=== PATIENT | male | born 1950 | race Two or more races ===

== ENCOUNTER 2019-04-04 13:00 | Outpatient (CLI) | payer MEDICARE | END 2019-04-04 23:59 | disposition home health service (06) | LOC: WOU 13:00 | PROVIDERS: ATTEND Podiatrist Foot & Ankle Surgery | DX: E11.621 Type 2 diabetes mellitus with foot ulcer (principal); L97.412 Non-pressure chronic ulcer of right heel and midfoot with fat layer exposed; Z79.4 Long term (current) use of insulin; Z89.512 Acquired absence of left leg below knee; E11.51 Type 2 diabetes mellitus with diabetic peripheral angiopathy without gangrene; L03.115 Cellulitis of right lower limb; E11.42 Type 2 diabetes mellitus with diabetic polyneuropathy; G30.9 Alzheimer's disease, unspecified; F02.80 Dementia in other diseases classified elsewhere, unspecified severity, without behavioral disturbance, psychotic disturbance, mood disturbance, and anxiety; H54.8 Legal blindness, as defined in USA; E11.22 Type 2 diabetes mellitus with diabetic chronic kidney disease; N18.9 Chronic kidney disease, unspecified; B35.1 Tinea unguium | CPT/HCPCS: 11042; 87070; 87075; 87077; 87186 ×2; A6210 ==

== ENCOUNTER 2019-04-11 13:00 | Outpatient (CLI) | payer MEDICARE | END 2019-04-11 23:59 | disposition home health service (06) | LOC: WOU 13:00 | PROVIDERS: ATTEND Podiatrist Foot & Ankle Surgery | DX: E11.621 Type 2 diabetes mellitus with foot ulcer (principal); L97.413 Non-pressure chronic ulcer of right heel and midfoot with necrosis of muscle; E11.42 Type 2 diabetes mellitus with diabetic polyneuropathy; E11.51 Type 2 diabetes mellitus with diabetic peripheral angiopathy without gangrene; L03.115 Cellulitis of right lower limb; Z89.512 Acquired absence of left leg below knee; Z79.4 Long term (current) use of insulin; Z99.3 Dependence on wheelchair; R60.0 Localized edema | CPT/HCPCS: 11043; A6210 ==

== ENCOUNTER 2019-04-18 13:30 | Outpatient (CLI) | payer MEDICARE | END 2019-04-18 23:59 | disposition home health service (06) | LOC: WOU 13:30 | PROVIDERS: ATTEND Podiatrist Foot & Ankle Surgery | DX: E11.621 Type 2 diabetes mellitus with foot ulcer (principal); L97.413 Non-pressure chronic ulcer of right heel and midfoot with necrosis of muscle; E11.51 Type 2 diabetes mellitus with diabetic peripheral angiopathy without gangrene; Z89.512 Acquired absence of left leg below knee; Z79.4 Long term (current) use of insulin; Z79.899 Other long term (current) drug therapy; R42 Dizziness and giddiness; R03.1 Nonspecific low blood-pressure reading | CPT/HCPCS: 11043; 82962; 87070; 87075; 87077; 87186; A6210; G0463 ==

== ENCOUNTER 2019-04-25 12:50 | Outpatient (CLI) | payer MEDICARE, OTHER | END 2019-04-25 23:59 | disposition home health service (06) | LOC: WOU 12:50 | PROVIDERS: ATTEND Podiatrist Foot & Ankle Surgery | DX: E11.621 Type 2 diabetes mellitus with foot ulcer (principal); L97.413 Non-pressure chronic ulcer of right heel and midfoot with necrosis of muscle; L03.115 Cellulitis of right lower limb; R60.0 Localized edema; Z89.512 Acquired absence of left leg below knee; E11.51 Type 2 diabetes mellitus with diabetic peripheral angiopathy without gangrene; E11.42 Type 2 diabetes mellitus with diabetic polyneuropathy; Z79.4 Long term (current) use of insulin; Z79.899 Other long term (current) drug therapy | CPT/HCPCS: 11043; A6210 ==

== ENCOUNTER 2019-06-15 10:10 | Outpatient (CLI) | payer MEDICARE, OTHER ==
[2019-11-28] MEDS ORDERED: PANT40TA49 PO (16:40)
[2019-12-19] MEDS ORDERED: NUT.237L45 PO (12:27)
== END 2019-06-15 23:59 ==
LOC: WOU 10:10
PROVIDERS: ATTEND Podiatrist Foot & Ankle Surgery
DX: E11.621 Type 2 diabetes mellitus with foot ulcer (principal); L97.413 Non-pressure chronic ulcer of right heel and midfoot with necrosis of muscle; Z79.4 Long term (current) use of insulin; Z79.899 Other long term (current) drug therapy; Z89.512 Acquired absence of left leg below knee; Z99.3 Dependence on wheelchair
CPT/HCPCS: 11043

== ENCOUNTER 2019-06-29 10:15 | Outpatient (CLI) | payer MEDICARE, OTHER | END 2019-06-29 23:59 | LOC: WOU 10:15 | PROVIDERS: ATTEND Podiatrist Foot & Ankle Surgery | DX: E11.621 Type 2 diabetes mellitus with foot ulcer (principal); L97.413 Non-pressure chronic ulcer of right heel and midfoot with necrosis of muscle; E11.42 Type 2 diabetes mellitus with diabetic polyneuropathy; E11.51 Type 2 diabetes mellitus with diabetic peripheral angiopathy without gangrene; Z79.4 Long term (current) use of insulin; Z79.899 Other long term (current) drug therapy; Z89.512 Acquired absence of left leg below knee | CPT/HCPCS: 11043 ==

== ENCOUNTER 2019-10-05 09:45 | Outpatient (CLI) | payer MEDICARE, OTHER ==
[2019-10-05] MEDS ORDERED: PIOG30TA10 PO (11:32)
[2019-10-05] MEDS ORDERED: INSU100V7 SQ (11:32)
[2019-10-05] MEDS ORDERED: GABA-532 PO (11:32)
[2019-10-05] MEDS ORDERED: CALC355O18 PO (11:32)
[2019-10-05] MEDS ORDERED: PRAM0.253 PO (11:32)
[2019-10-05] MEDS ORDERED: METO25TA6 PO (11:32)
[2019-10-05] MEDS ORDERED: RIVA10TA PO (11:32)
[2019-10-05] MEDS ORDERED: MIRT15TA7 PO (11:32)
[2019-10-05] MEDS ORDERED: ZINC220T4 PO (11:32)
[2019-10-05] MEDS ORDERED: ASCO500T10 PO (11:32)
[2019-10-05] MEDS ORDERED: FAMO40TA7 PO (11:32)
[2019-10-05] MEDS ORDERED: CARB-93 PO (11:32)
[2019-10-05] MEDS ORDERED: ACET-868 PO (11:32)
[2019-10-05] MEDS ORDERED: ISOS30TA6 PO (11:32)
[2019-10-05] MEDS ORDERED: MAGN400T8 PO (11:32)
[2019-10-05] MEDS ORDERED: DONE10TA44 PO (11:32)
[2019-10-05] MEDS ORDERED: MEMA10TA PO (11:32)
[2019-10-05] MEDS ORDERED: ATOR40TA PO (11:32)
[2019-10-05] MEDS ORDERED: LOSA100T31 PO (11:32)
[2019-10-05] MEDS ORDERED: LEVO100T9 PO (11:32)
[2019-10-05] MEDS ORDERED: ARGI1POW13 PO (11:33)
[2019-11-28] MEDS ORDERED: PANT40TA49 PO (16:40)
[2019-12-19] MEDS ORDERED: NUT.237L45 PO (12:27)
== END 2019-10-05 23:59 ==
LOC: WOU 09:45
PROVIDERS: ATTEND Podiatrist Foot & Ankle Surgery
DX: E11.621 Type 2 diabetes mellitus with foot ulcer (principal); L97.416 Non-pressure chronic ulcer of right heel and midfoot with bone involvement without evidence of necrosis; L03.115 Cellulitis of right lower limb; E11.42 Type 2 diabetes mellitus with diabetic polyneuropathy; E11.51 Type 2 diabetes mellitus with diabetic peripheral angiopathy without gangrene; Z79.4 Long term (current) use of insulin; Z89.512 Acquired absence of left leg below knee; Z99.3 Dependence on wheelchair; Z79.899 Other long term (current) drug therapy
CPT/HCPCS: G0463

== ENCOUNTER 2019-10-05 10:54 | Inpatient (IN) | payer MEDICARE, OTHER ==
[~2019-10-05] VITALS: Ht 157.5 cm; Wt 81.6 kg
[2019-10-05] MEDS ORDERED: RIVA10TA PO (11:32)
[2019-10-05] MEDS ORDERED: DONE10TA44 PO (11:32)
[2019-10-05] MEDS ORDERED: MIRT15TA7 PO (11:32)
[2019-10-05] MEDS ORDERED: METO25TA6 PO (11:32)
[2019-10-05] MEDS ORDERED: PRAM0.253 PO (11:32)
[2019-10-05] MEDS ORDERED: CARB-93 PO (11:32)
[2019-10-05] MEDS ORDERED: ZINC220T4 PO (11:32)
[2019-10-05] MEDS ORDERED: GABA-532 PO (11:32)
[2019-10-05] MEDS ORDERED: ASCO500T10 PO (11:32)
[2019-10-05] MEDS ORDERED: CALC355O18 PO (11:32)
[2019-10-05] MEDS ORDERED: ACET-868 PO (11:32)
[2019-10-05] MEDS ORDERED: INSU100V7 SQ (11:32)
[2019-10-05] MEDS ORDERED: ISOS30TA6 PO (11:32)
[2019-10-05] MEDS ORDERED: LOSA100T31 PO (11:32)
[2019-10-05] MEDS ORDERED: MAGN400T8 PO (11:32)
[2019-10-05] MEDS ORDERED: FAMO40TA7 PO (11:32)
[2019-10-05] MEDS ORDERED: ATOR40TA PO (11:32)
[2019-10-05] MEDS ORDERED: PIOG30TA10 PO (11:32)
[2019-10-05] MEDS ORDERED: MEMA10TA PO (11:32)
[2019-10-05] MEDS ORDERED: LEVO100T9 PO (11:32)
[2019-10-05] MEDS ORDERED: ARGI1POW13 PO (11:33)
[2019-10-05 12:00] LABS: BASOPHILS # (AUTO) 0.1 /CMM (0.0-0.2); BASOPHILS % (AUTO) 0.8 % (0.0-2.0); EOSINOPHILS % (AUTO) 6.5 % (0.0-6.0); HEMATOCRIT 30 % (39-51); HEMOGLOBIN 9.6 g/dL (13.5-17.5); LYMPHOCYTES # (AUTO) 1.9 /CMM (0.8-4.8); LYMPHOCYTES % (AUTO) 20.5 % (20.0-44.0); MEAN CORPUSCULAR HGB CONC 32 g/dl (31.0-36.0); MEAN CORPUSCULAR VOLUME 78 fL (80-96); MONOCYTES # (AUTO) 0.7 /CMM (0.1-1.30); MONOCYTES % (AUTO) 7.1 % (2.0-12.0); NEUTROPHILS # (AUTO) 6.1 /CMM (1.8-8.9); NEUTROPHILS % (AUTO) 65.1 % (43.0-81.0); PLATELET COUNT (AUTO) 453 /CMM (150-450); RED BLOOD CELL COUNT(AUTO) 3.89 MIL/uL (4.5-6.0); WHITE BLOOD COUNT (AUTO) 9.3 K/uL (4.3-11.0)
[2019-10-05] MEDS ORDERED: VANCOMYCIN 1 GM in IV D5W 250 ML IV ONE (12:00)
[2019-10-05 12:07] LABS: CALCIUM, SERUM 8.6 mg/dL (8.5-10.1); CARBON DIOXIDE 29 mmol/L (21-32); CHLORIDE 95 mmol/L (98-107); CREATININE 1.3 mg/dL (0.6-1.3); GLUCOSE 193 mg/dL (74-106); POTASSIUM 3.8 mmol/L (3.5-5.1); SODIUM SERUM 127 mmol/L (136-145); UREA NITROGEN, BLOOD 21 mg/dL (7-18)
[2019-10-05 12:14] LABS: ALANINE AMINOTRANSFERASE 14 U/L (12-78); ALBUMIN 2.2 g/dL (3.4-5.0); ALKALINE PHOSPHATASE 97 U/L (46-116); ASPARTATE AMINOTRANSFERASE 16 U/L (15-37); BILIRUBIN,DIRECT 0.1 mg/dL (0.0-0.2); BILIRUBIN,TOTAL 0.2 mg/dL (0.2-1.0); TOTAL PROTEIN, SERUM 8.4 g/dL (6.4-8.2)
--- NOTE | 2019-10-05 12:21 | NUR ---
Sent by the wound clinic (Dr. Silva) for right foot cellulitis, poss. OM. PT NON VERBAL, EYES OPEN. VSS. RR EVEN & UNLABORED. NO ACUTE DISTRESS NOTED @ THIS TIME. PT SEEN & EVAL'D BY DR. FELIPE. WILL CONT TO MONITOR.
--- NOTE | 2019-10-05 12:22 | NUR ---
CALLED PHARM TO PREPARE VANCOMYCIN
--- NOTE | 2019-10-05 13:32 | NUR ---
PAGED [facility].
[2019-10-05 13:33] LABS: APPEARANCE,URINE Clear (CLEAR); BILIRUBIN,URINE Negative (NEGATIVE); BLOOD, URINE Negative Ery/uL (NEGATIVE); COLOR,URINE Yellow (YELLOW); KETONES,URINE Negative (NEGATIVE); LEUKOCYTE ESTERASE ,URINE Negative (NEGATIVE); NITRITE, URINE Negative (NEGATIVE); PH,URINE 5.5 (5.0-8.0); PROTEIN,URINE 100 mg/dl (NEGATIVE); UGLUCOSE Negative (NEGATIVE); UROBILINOGEN,URINE 0.2 EU/dL (0.2)
--- NOTE | 2019-10-05 14:00 | NUR ---
CALLED NURSING SUP FOR M/S BED.
--- NOTE | 2019-10-05 14:14 | NUR ---
NURSING SUP GAVE M/S BED 314-1. IMMACHELLEULATE IS THE NURSE.
--- NOTE | 2019-10-05 14:21 | NUR ---
report given to salvador SHAH for jamee
--- NOTE | 2019-10-05 14:40 | NUR ---
MS RN ADMITTING NOTES RECEIVED REPORT FROM PABLO FRAUSTO. PT TRANSPORTED TO UNIT AT THIS TIME VIA GURNEY BY EMT. AOX3, CAMEROONIAN/ENGLSIH SPEAKING. PT ABLE TO MAKE NEEDS KNOWN. VITAL SIGNS STABLE, ACTIVE BOWEL SOUNDS, LUNGS CLEAR TO AUSCULTATION, CAPILLARY REFILL < 3 SECONDS, PRESENT PULSES. NO SOB NOTED, NO S/S OF ANY ACUTE DISTRESS NOTED AT THIS TIME. RESPIRATIONS EVEN AND UNLABORED WITH EQUAL RISE AND FALL IN CHEST. NO C/O PAIN AT THIS TIME. IV ACCESS IN L-HAND G#22, INTACT AND PATENT. LEFT BELOW THE KNEE AMPUTATION, RIGHT HEEL WOUND, SACRAL REDNESS, LEFT THIGH SCRATCH BERNSTEIN, RIGHT LEG/FOOT SCARS, WHEEL CHAIR AT BEDSIDE. PICTURES TAKEN, DOCUMENTED AND FILED IN CHART. ALL BELONGINGS ACCOUNTED FOR AND FILED IN CHART. ASPIRATION AND SAFETY PRECAUTIONS IN PLACE. BED IN LOWEST LOCKED POSITION, SIDE RAILS UP X2, HOB ELEVATED TO SEMI FOWLERS POSITION, CALL LIGHT WITHIN REACH. WILL CONTINUE TO MONITOR
--- NOTE | 2019-10-05 14:40 | NUR ---
MS RN ADD
[2019-10-05] MEDS ORDERED: ONDANSETRON HCL/PF 4 MG/2 ML VIAL IVP PRN (15:00)
[2019-10-05] MEDS ORDERED: DEXTROSE 50%-WATER 50 ML DISP.SYRIN IV PRN (15:00)
[2019-10-05] MEDS ORDERED: ENOXAPARIN SODIUM 40 MG/0.4 ML DISP.SYRIN SQ SCH (15:00)
[2019-10-05] MEDS ORDERED: Z GUARD REMEDY 2 OZ OINT TP PRN (15:00)
[2019-10-05] MEDS ORDERED: ACETAMINOPHEN 325 MG TABLET PO PRN (15:00)
[2019-10-05] MEDS ORDERED: ZOLPIDEM TARTRATE 5 MG TABLET PO PRN (15:00)
--- NOTE | 2019-10-05 15:15 | NUR ---
wheeled patient via gurney accompanied by EMT in no distress. RN at bedside to assume care.
[2019-10-05] MEDS: MEMANTINE HCL 5 MG TABLET PO SCH (16:33)
[2019-10-05] MEDS: GABAPENTIN 100 MG CAPSULE PO SCH (16:34)
[2019-10-05] MEDS: CARBIDOPA/LEVODOPA 25/100 MG 1 UDTAB PO SCH ×2 (16:34→21:46)
[2019-10-05] MEDS: MAGNESIUM OXIDE 400 MG TABLET PO SCH (16:34)
[2019-10-05] MEDS: ASCORBIC ACID 500 MG TABLET PO SCH (16:34)
[2019-10-05] MEDS: BLOOD SUGAR DIAGNOSTIC 1 EACH STRIP IN SCH ×2 (17:37→21:51)
[2019-10-05] MEDS: INSULIN REGULAR, HUMAN 100 UNIT/ML 3 ML VIAL SQ PRN ×2 (17:42→21:54)
[2019-10-05] MEDS: PIPERACILLIN /TAZOBACTAM 4.5 G in IV D5W 50 ML IV SCH ×2 (17:45→23:45)
[2019-10-05] MEDS ORDERED: FEE PK DOSING 1 MIN EA MC ONE (18:54)
--- NOTE | 2019-10-05 18:58 | NUR ---
MS RN CLOSING NOTES PT AWAKE IN BED AT THIS TIME. PT REMAINED STABLE THROUGHOUT SHIFT. PT KEPT CLEAN AND DRY. ALL CARE, NEEDS, MEDICATIONS AND WOUND TREATMENT ADMINISTERED ANTICIPATED PER ORDER.PT REPOSITIONED Q2HRS, PRN AND PER PROTOCOL. ASPIRATION AND SAFETY PRECAUTIONS IN PLACE AND MAINTAINED AT ALL TIMES. BED IN LOWEST LOCKED POSITION, SIDE RAILS UP X2, HOB ELEVATED TO SEMI FOWLERS POSITION, CALL LIGHT WITHIN REACH. WILL ENDORSE TO DESK OFFICER NURSE FOR MAR
--- NOTE | 2019-10-05 19:30 | NUR ---
MS RN RECEIVE PT IN BED AWAKE WATCHING TV A/O X 1 STABLE, NO S/S OF DISTRESS, SAFETY MEASURES AT ALL TIMES. WILL CONT TO MONITOR PT
[2019-10-05 20:00] VITALS: BP 117/63
[2019-10-05] MEDS: ATORVASTATIN 40 MG TABLET PO SCH (21:46)
[2019-10-05] MEDS: DONEPEZIL 5 MG TABLET PO SCH (21:46)
[2019-10-05] MEDS ORDERED: HYDROCODONE/APAP 5/325MG 1 EACH TABLET ONE (21:49)
[2019-10-05] MEDS: METOPROLOL TARTRATE 25 MG TABLET PO SCH (21:50)
[2019-10-05] MEDS: HYDROCODONE/APAP 5/325MG 1 EACH TABLET PO PRN (21:51)
[2019-10-05] MEDS: RIVAROXABAN 10 MG TABLET PO SCH (21:52)
[2019-10-05] MEDS: INSULIN GLARGINE, 100 UNIT/ML CARTRIDGE SQ SCH (21:53)
[2019-10-05] MEDS ORDERED: MIRTAZAPINE 15 MG TABLET PO PRN (22:00)
[2019-10-06] MEDS: VANCOMYCIN 0.75 GM in IV D5W 250 ML IV SCH ×2 (01:58→14:00)
[2019-10-06] MEDS: PIPERACILLIN /TAZOBACTAM 4.5 G in IV D5W 50 ML IV SCH ×4 (05:14→23:31)
--- NOTE | 2019-10-06 05:51 | NUR ---
MS RN ASLEEP AND EASILY AWAKEN, AM CARE RENDERED, GOOD SKIN CARE, NO C/O OF PAIN, NO S/S OF DISTRESS, ALL NEEDS ATTENDED AND ANTICIPATED, MONITORED ACCORDINGLY, KEPT CLEAN, COMFORTABLE. REPOSITION EVERY 2 HOURS, SAFETY MEASURES AT ALL TIMES. ENDORSE NEXT SHIFT POC.
[2019-10-06 06:23] LABS: BASOPHILS % (AUTO) 0.5 % (0.0-2.0); HEMATOCRIT 28 % (39-51); LYMPHOCYTES # (AUTO) 1.8 /CMM (0.8-4.8); LYMPHOCYTES % (AUTO) 25.4 % (20.0-44.0); MEAN CORPUSCULAR HGB CONC 32 g/dl (31.0-36.0); MEAN CORPUSCULAR VOLUME 77 fL (80-96); MONOCYTES # (AUTO) 0.5 /CMM (0.1-1.30); NEUTROPHILS # (AUTO) 4.1 /CMM (1.8-8.9); NEUTROPHILS % (AUTO) 58.1 % (43.0-81.0); PLATELET COUNT (AUTO) 403 /CMM (150-450); RED BLOOD CELL COUNT(AUTO) 3.65 MIL/uL (4.5-6.0); WHITE BLOOD COUNT (AUTO) 7.1 K/uL (4.3-11.0)
[2019-10-06] MEDS: BLOOD SUGAR DIAGNOSTIC 1 EACH STRIP IN SCH ×4 (06:25→22:37)
[2019-10-06] MEDS: INSULIN REGULAR, HUMAN 100 UNIT/ML 3 ML VIAL SQ PRN ×4 (06:26→22:40)
[2019-10-06 06:54] LABS: CALCIUM, SERUM 8.7 mg/dL (8.5-10.1); CREATININE 1.3 mg/dL (0.6-1.3); MAGNESIUM 2.2 mg/dL (1.8-2.4); PHOSPHORUS 3.5 mg/dL (2.5-4.9); POTASSIUM 3.8 mmol/L (3.5-5.1)
--- NOTE | 2019-10-06 07:08 | NUR ---
MS RN OPENING NOTES RECEIVED PT AWAKE IN BED AT THIS TIME. AOX3, MOLDOVAN/GUINEAN SPEAKING. PT ABLE TO MAKE NEEDS KNOWN. NO SOB NOTED, NO S/S OF ANY ACUTE DISTRESS NOTED AT THIS TIME. RESPIRATIONS EVEN AND UNLABORED WITH EQUAL RISE AND FALL IN CHEST. NO C/O PAIN AT THIS TIME. IV ACCESS IN L-HAND G#22, INTACT AND PATENT. LEFT BELOW THE KNEE AMPUTATION, WHEEL CHAIR AT BEDSIDE. ASPIRATION AND SAFETY PRECAUTIONS IN PLACE. BED IN LOWEST LOCKED POSITION, SIDE RAILS UP X2, HOB ELEVATED TO SEMI FOWLERS POSITION, CALL LIGHT WITHIN REACH. WILL CONTINUE TO MONITOR
[2019-10-06 07:24] LABS: THYROID STIMULATING HORMONE 4.415 uIU/mL (0.358-3.74)
[2019-10-06 08:00] VITALS: BP 139/74
[2019-10-06] MEDS: PANTOPRAZOLE 40 MG TABLET.DR PO SCH (08:29)
[2019-10-06] MEDS: ISOSORBIDE MONONITRATE (30MG) 30 MG TAB.SR.24H PO SCH (09:31)
[2019-10-06] MEDS: ZINC SULFATE 220 MG CAPSULE PO SCH (09:32)
[2019-10-06] MEDS: GABAPENTIN 100 MG CAPSULE PO SCH ×3 (09:32→16:28)
[2019-10-06] MEDS: PIOGLITAZONE HCL 15 MG TABLET PO SCH (09:32)
[2019-10-06] MEDS: LOSARTAN POTASSIUM 50 MG TABLET PO SCH (09:33)
[2019-10-06] MEDS: CARBIDOPA/LEVODOPA 25/100 MG 1 UDTAB PO SCH ×4 (09:33→22:14)
[2019-10-06] MEDS: MEMANTINE HCL 5 MG TABLET PO SCH ×2 (09:33→16:28)
[2019-10-06] MEDS: METOPROLOL TARTRATE 25 MG TABLET PO SCH ×2 (09:33→22:19)
[2019-10-06] MEDS: PRAMIPEXOLE DI-HCL 0.25 MG TABLET PO SCH (09:33)
[2019-10-06] MEDS: LEVOTHYROXINE SODIUM 100 MCG TABLET PO SCH (09:33)
[2019-10-06] MEDS: ASCORBIC ACID 500 MG TABLET PO SCH ×2 (09:34→16:28)
[2019-10-06] MEDS: MAGNESIUM OXIDE 400 MG TABLET PO SCH ×2 (09:50→16:28)
--- NOTE | 2019-10-06 15:30 | NUR ---
PT'S VANCO TROUGH LEVEL IS 28. ISELA, VEHICLE TECHNICIAN WAS MADE AWARE. HOLD VANCOMYCIN HELD PER ISELA ANGEL
[2019-10-06 16:00] VITALS: BP 83/42
--- NOTE | 2019-10-06 18:00 | NUR ---
PT CONSULTED BY DOCTOR CID, WOUND CARE ORDERS RECEIVED AND CARRIED OUT. WILL CONTINUE TO MONITOR
--- NOTE | 2019-10-06 19:03 | NUR ---
MS RN CLOSING NOTES PT AWAKE IN BED AT THIS TIME. PT REMAINED STABLE THROUGHOUT SHIFT. PT KEPT CLEAN AND DRY. ALL CARE, NEEDS, MEDICATIONS AND WOUND TREATMENT ADMINISTERED ANTICIPATED PER ORDER.PT REPOSITIONED Q2HRS, PRN AND PER PROTOCOL. ASPIRATION AND SAFETY PRECAUTIONS IN PLACE AND MAINTAINED AT ALL TIMES. BED IN LOWEST LOCKED POSITION, SIDE RAILS UP X2, HOB ELEVATED TO SEMI FOWLERS POSITION, CALL LIGHT WITHIN REACH. WILL ENDORSE TO ORACLE MANAGER NURSE FOR MAR
--- NOTE | 2019-10-06 19:30 | NUR ---
MS RN RECEIVE PT IN BED TV A/O X 1-2 STABLE, NO S/S OF DISTRESS, WOUND CARE ONGOING. SAFETY MEASURES AT ALL TIMES. WILL CONT TO MONITOR PT Addendum: 10/06/19 at 1950 by NAYA ROA RN WATCHING TV
[2019-10-06 20:30] VITALS: BP 96/57
[2019-10-06 21:30] VITALS: BP 86/56
--- NOTE | 2019-10-06 21:30 | NUR ---
NOTED PT LOW BLOOD PRESSURE BP 86/56 CT 61 T 97.8 R 19 O2 SAT 98% R.A ASSESS PT, PT CAN ABLE VERBALIZE NEEDS PER PT "IM OK". WILL RELAY TO Neeta PT STABLE
[2019-10-06] MEDS ORDERED: IV NS 0.9% 500 ML IV ONE ×3 (22:00→23:30)
--- NOTE | 2019-10-06 22:00 | NUR ---
SPOKE TO RACHEL TRINIDAD HOSPITALIST RELAYED RECENT BLOOD PRESSURE TEL ORDER RECEIVE PER M.D TO GIVE 500 ML NS IVF BOLUS TO BE INFUSED IN 30 MINUTES. RE CHECK BP POST BOLUS IF STILL LOW BLOOD PRESSURE GIVE ANOTHER BOLUS OF IVF 500 ML NS, CONTINUE GIVE BOLUS UNTIL BLOOD PRESSURE NORMALIZE. TOTAL BOLUS MAX TO BE GIVEN 2000 LITERS READ BACK AND VERIFIED ORDERS NOTED AND CARRIED OUT
[2019-10-06] MEDS: DONEPEZIL 5 MG TABLET PO SCH (22:14)
[2019-10-06] MEDS: ATORVASTATIN 40 MG TABLET PO SCH (22:14)
[2019-10-06] MEDS: RIVAROXABAN 10 MG TABLET PO SCH (22:18)
--- NOTE | 2019-10-06 22:35 | NUR ---
PT HAD PM SNACKS 1 TUNA SANDWICH AND 2 APPLE JUICE
[2019-10-06] MEDS: INSULIN GLARGINE, 100 UNIT/ML CARTRIDGE SQ SCH (22:38)
--- NOTE | 2019-10-06 22:40 | NUR ---
ZEESHAN HOSPITALIST Addendum: 10/07/19 at 0209 by NAYA ROA RN Zeeshan franco around 2140 10/06/2019
[2019-10-06 22:45] VITALS: BP 88/58
--- NOTE | 2019-10-06 22:45 | NUR ---
MS RN REASSESS PT POST BOLUS BP: 88/58 R 19 P 73 T 98.1 02 SAT 98% R.A WILL GIVE NS IVF 500 ML BOLUS PER ORDER
[2019-10-06 23:27] VITALS: BP 84/50
--- NOTE | 2019-10-06 23:27 | NUR ---
MS RN BLOOD PRESSURE 84/50 P 61 t 98.7 R 19 O2 SAT 100% R.A PT STABLE AT THIS TIME ABLE TO VERBALIZE NEEDS ANOTHER 500 ML BOLUS GIVEN PER RACHEL TRINIDAD ORDERS
[2019-10-07 00:12] VITALS: BP 103/75
--- NOTE | 2019-10-07 00:12 | NUR ---
MS SHAH RE ASSESS PT POST BOLUS BLOOD PRESSURE 103/75 R 19 P 65 T 98.6 02 SAT 98% R.A PT STABLE HAD 1 APPLE JUICE PT APPRECIATIVE TO NURSES, REPOSITION PT. Addendum: 10/07/19 at 0025 by NAYA ROA RN CHARGE NURSE AWARE POST BOLUS VITAL SIGN
[2019-10-07 01:58] VITALS: BP 112/60
--- NOTE | 2019-10-07 02:00 | NUR ---
SPOKE TO FAY SISTER OF THE PT RELAYED RECENT VITAL SIGNS AND DISCUSS PLAN OF CARE. SISTER FAY APPRECIATIVE TO NURSES TRANSFERRED PHONE CALL TO PT.
[2019-10-07] MEDS: PIPERACILLIN /TAZOBACTAM 4.5 G in IV D5W 50 ML IV SCH ×3 (05:41→17:03)
--- NOTE | 2019-10-07 05:55 | NUR ---
MS RN MONITORED PT ACCORDINGLY, NO C/O OF PAIN, NO S/S OF DISTRESS, ALL NEEDS ATTENDED AND ANTICIPATED. PT SATISFIED WITH CARE PROVIDED PT VERBALIZED"GOOD SERVICE" PT A/O X 2-3 PERIOD OF FORGETFULNESS, REPOSITION EVERY 2 HOURS, WOUND CARE ORDERED, OFFLOAD HEELS AT ALL TIMES. KEPT CLEAN, DRY AND COMFORT AT ALL TIMES. SAFETY MEASURES AT ALL TIMES. ENDORSE NEXT SHIFT POC.
[2019-10-07] MEDS: BLOOD SUGAR DIAGNOSTIC 1 EACH STRIP IN SCH ×4 (06:34→21:15)
[2019-10-07] MEDS: INSULIN REGULAR, HUMAN 100 UNIT/ML 3 ML VIAL SQ PRN ×4 (06:35→21:07)
[2019-10-07 06:43] VITALS: BP 100/53
[2019-10-07 06:49] LABS: BASOPHILS % (AUTO) 0.5 % (0.0-2.0); EOSINOPHILS % (AUTO) 8.2 % (0.0-6.0); HEMATOCRIT 25 % (39-51); HEMOGLOBIN 7.9 g/dL (13.5-17.5); LYMPHOCYTES # (AUTO) 1.5 /CMM (0.8-4.8); LYMPHOCYTES % (AUTO) 19.9 % (20.0-44.0); MEAN CORPUSCULAR HGB CONC 32 g/dl (31.0-36.0); MEAN CORPUSCULAR VOLUME 77 fL (80-96); MONOCYTES # (AUTO) 0.6 /CMM (0.1-1.30); MONOCYTES % (AUTO) 7.3 % (2.0-12.0); NEUTROPHILS # (AUTO) 4.9 /CMM (1.8-8.9); NEUTROPHILS % (AUTO) 64.1 % (43.0-81.0); PLATELET COUNT (AUTO) 353 /CMM (150-450); RED BLOOD CELL COUNT(AUTO) 3.21 MIL/uL (4.5-6.0); WHITE BLOOD COUNT (AUTO) 7.6 K/uL (4.3-11.0)
[2019-10-07 06:54] LABS: CALCIUM, SERUM 7.7 mg/dL (8.5-10.1); CREATININE 1.4 mg/dL (0.6-1.3); POTASSIUM 3.7 mmol/L (3.5-5.1)
--- NOTE | 2019-10-07 07:30 | NUR ---
RN OPEN NOTES PATIENT IS IN BED RESTING IN BED WITH NO SIGNS OF DISTRESS IN ROOM AIR. IV LEFT HAND #22G INTACT AND PATENT. R LEG ELEVATED ON ONE PILLOW. BED IS IN LOW POSITION AND LOCKED WITH STUDENT EDUCATION SPECIALIST RAILS X 2. CALL LIGHT IS WITHIN REACH. FOR SAFETY WILL CONTINUE TO MONITOR.
[2019-10-07 08:00] VITALS: BP 100/53
[2019-10-07] MEDS: PRAMIPEXOLE DI-HCL 0.25 MG TABLET PO SCH (08:49)
[2019-10-07] MEDS: ZINC SULFATE 220 MG CAPSULE PO SCH (08:49)
[2019-10-07] MEDS: PIOGLITAZONE HCL 15 MG TABLET PO SCH (08:50)
[2019-10-07] MEDS: GABAPENTIN 100 MG CAPSULE PO SCH ×3 (08:50→16:56)
[2019-10-07] MEDS: CARBIDOPA/LEVODOPA 25/100 MG 1 UDTAB PO SCH ×4 (08:50→20:26)
[2019-10-07] MEDS: MAGNESIUM OXIDE 400 MG TABLET PO SCH ×2 (08:50→16:55)
[2019-10-07] MEDS: ASCORBIC ACID 500 MG TABLET PO SCH ×2 (08:50→16:55)
[2019-10-07] MEDS: MEMANTINE HCL 5 MG TABLET PO SCH ×2 (08:50→16:55)
[2019-10-07] MEDS: LEVOTHYROXINE SODIUM 100 MCG TABLET PO SCH (08:55)
[2019-10-07] MEDS: PANTOPRAZOLE 40 MG TABLET.DR PO SCH (08:55)
[2019-10-07] MEDS ORDERED: VANCOMYCIN 0.75 GM in IV D5W 250 ML IV SCH ×2 (09:00→13:00)
[2019-10-07] MEDS: LOSARTAN POTASSIUM 50 MG TABLET PO SCH (09:00)
[2019-10-07] MEDS: ISOSORBIDE MONONITRATE (30MG) 30 MG TAB.SR.24H PO SCH (09:00)
[2019-10-07] MEDS: METOPROLOL TARTRATE 25 MG TABLET PO SCH ×2 (09:00→20:31)
--- NOTE | 2019-10-07 09:11 | NUR ---
RN NOTES BP WAS LOW 100/53 HR 75. BP MEDICATIONS WERE HOLD.
[2019-10-07] MEDS: DAKINS QUARTER STRENGTH (0.125%) 480 ML BOTTLE TOP SCH (09:43)
--- NOTE | 2019-10-07 10:30 | NUR ---
RN NOTES R HEEL WOUND DRESSING WAS CHANGED AND CLEANED DIRECTED. NO SIGNS OF BLEEDING ON THE WOUND. WILL CONTINUE TO MONITOR.
--- NOTE | 2019-10-07 11:40 | NUR ---
RN NOTES PATIENT HAD A EPISODE OF LOW BLOOD PRESSURE 998/[address] LANGE AND ORDERED NS 75 MLS/HR. ORDERED WAS NOTED AND CARRIED OUT.
[2019-10-07] MEDS: IV NS 0.9% 1,000 ML IV PRN (12:23)
[2019-10-07 16:00] VITALS: BP 107/63
[2019-10-07] MEDS: MUPIROCIN OINT 2% 22 GM TUBE SCH ×2 (16:55→20:27)
--- NOTE | 2019-10-07 19:15 | NUR ---
RN CLOSED NOTES PATIENT IS IN BED RESTING IN BED WITH NO SIGNS OF DISTRESS IN ROOM AIR. IV LEFT HAND #22G INTACT AND PATENT. R LEG ELEVATED ON ONE PILLOW. SCHEDULED MEDICATIONS WERE GIVEN AND TOLERATED WELL. CONSENT PACKET FOR SURGERY READY, CHECKLIST STARTED AND 2 UNITS OF PRBC ORDERED ON STAND BY FOR TOMORROW ORDERE BY DR CID. NPO AFTER MIDNIGHT. BED IS IN LOW POSITION AND LOCKED WITH MACHINE II TRIMMER RAILS X 2. CALL LIGHT IS WITHIN REACH. FOR SAFETY. WILL ENDORSE TO THE NEXT SHIFT.
--- NOTE | 2019-10-07 19:25 | NUR ---
MS PABLO OPEN NOTES PATIENT IS LAYING IN BED. A/O X1-2. ON RA, NO SOB/ ACUTE RESPIRATORY DISTRESS NOTED. BED IS IN LOWEST LOCKED POSITION WITH SIDE RAILS UP X3, SEMI FOWLERS. CALL LIGHT IS WITHIN REACH. NPO AT MIDNIGHT NOTED FOR PROCEDURE TOMORROW. WILL CONTINUE TO MONITOR.
[2019-10-07 20:20] VITALS: BP 104/59
[2019-10-07] MEDS: DONEPEZIL 5 MG TABLET PO SCH (21:03)
[2019-10-07] MEDS: ATORVASTATIN 40 MG TABLET PO SCH (21:04)
[2019-10-07] MEDS: INSULIN GLARGINE, 100 UNIT/ML CARTRIDGE SQ SCH (21:06)
[2019-10-07] MEDS: RIVAROXABAN 10 MG TABLET PO SCH (21:26)
--- NOTE | 2019-10-07 21:27 | NUR ---
MS RN NOTES XARELTO 10MG SCHEDULED @ 2200 NON- ADMINISTERED DUE TO PATIENT'S PROCEDURE AT 1030AM TOMORROW. PATIENT IS GETTING A R HEEL DEBRIDEMENT. ALSO CONTACTED DR. TRINIDAD, IN WHICH HE STATED TO HOLD THE MEDICATION FOR TONIGHT. WILL CONTINUE TO MONITOR PATIENT.
[2019-10-08] MEDS: PIPERACILLIN /TAZOBACTAM 4.5 G in IV D5W 50 ML IV SCH ×5 (00:14→23:18)
[2019-10-08] MEDS: IV NS 0.9% 1,000 ML IV PRN (05:09)
--- NOTE | 2019-10-08 06:14 | NUR ---
MS RN CLOSE NOTES PATIENT IS LAYING IN BED. A/O X2-3. STABLE ON RA, NO SOB/ ACUTE RESPIRATORY DISTRESS NOTED. IV IN L HAND #22G IS PATENT AND INTACT. ALL DUE ANTIBIOTICS GIVEN. ALL ACCUCHECKS DONE. KEPT NPO SINCE MIDNIGHT. APPEARS COMFORTABLE/ NO COMPLAINTS OF PAIN AT THE MOMENT. BED IS IN LOWEST LOCKED POSITION WITH SIDE RAILS UP X3, SEMI FOWLERS. CALL LIGHT IS WITHIN REACH. WILL ENDORSE TO AM NURSE.
[2019-10-08] MEDS: BLOOD SUGAR DIAGNOSTIC 1 EACH STRIP IN SCH ×4 (06:39→22:04)
[2019-10-08] MEDS: PANTOPRAZOLE 40 MG TABLET.DR PO SCH (07:30)
[2019-10-08] MEDS: LEVOTHYROXINE SODIUM 112 MCG TABLET PO SCH (07:30)
--- NOTE | 2019-10-08 07:53 | NUR ---
MS/RN OPENING NOTES Received patient in bed, A&O x 2, mostly danish speaking. Kept at NPO for wound debridement procedure today @ 1030. Breathing even and non-labored on RA, no SOB noted. No cardiac distress noted. Patient denies any pain at this time. IV access noted on L Hand #22, running NS @ 75ml/hr. No infiltration, infection, or bleeding noted on site. Sensation from all peripheral extremities intact. Fall precautions maintained. Will continue to monitor for any changes of condition. Addendum: 10/08/19 at 0959 by ISELA JERRY RN Abdoulaye Combs noted, skin area clean, dry, intact.
[2019-10-08 08:00] VITALS: BP 110/56
[2019-10-08] MEDS: PIOGLITAZONE HCL 15 MG TABLET PO SCH (08:32)
[2019-10-08] MEDS: LOSARTAN POTASSIUM 50 MG TABLET PO SCH (08:34)
[2019-10-08] MEDS: ISOSORBIDE MONONITRATE (30MG) 30 MG TAB.SR.24H PO SCH (08:36)
[2019-10-08] MEDS: METOPROLOL TARTRATE 25 MG TABLET PO SCH ×2 (08:36→21:38)
[2019-10-08] MEDS: CARBIDOPA/LEVODOPA 25/100 MG 1 UDTAB PO SCH ×4 (08:37→21:37)
[2019-10-08] MEDS: PRAMIPEXOLE DI-HCL 0.25 MG TABLET PO SCH (08:37)
[2019-10-08] MEDS: ZINC SULFATE 220 MG CAPSULE PO SCH (08:37)
[2019-10-08] MEDS: MAGNESIUM OXIDE 400 MG TABLET PO SCH ×2 (08:37→16:50)
[2019-10-08] MEDS: ASCORBIC ACID 500 MG TABLET PO SCH ×2 (08:37→16:50)
[2019-10-08] MEDS: MEMANTINE HCL 5 MG TABLET PO SCH ×2 (08:37→16:49)
[2019-10-08] MEDS: GABAPENTIN 100 MG CAPSULE PO SCH ×3 (08:37→16:50)
[2019-10-08] MEDS: MUPIROCIN OINT 2% 22 GM TUBE SCH ×2 (09:00→22:03)
[2019-10-08] MEDS: DAKINS QUARTER STRENGTH (0.125%) 480 ML BOTTLE TOP SCH (09:00)
--- NOTE | 2019-10-08 09:52 | NUR ---
WOUND CARE CONSULT: PT REFUSED SKIN ASSESSMENT. PT NOTED TO HAVE BELOW KNEE AMPUTATION ON LEFT SIDE AND DRY DRESSING TO RT FOOT, PRESENT ON ADMISSION. ADMISSION PHOTOS SHOW SACRAL SCARRING, PRESENT ON ADMISSION. RECOMMENDATIONS MADE FOR SKIN PROTECTION. DISCUSSED WITH NURSING STAFF. PT FOLLOWED BY DPM FOR LOWER EXTREMITY. WILL SEE PRN. IN AGREEMENT WITH PLAN OF CARE.
--- NOTE | 2019-10-08 10:10 | NUR ---
MS/RN NOTES Rapid covid-19 test taken and sent to lab.
[2019-10-08] MEDS ORDERED: LIDOCAINE HCL/MPF 1% 30 ML VIAL IJ ONE (11:59)
[2019-10-08] MEDS ORDERED: BUPIVACAINE 0.5 % PF 150 MG/30 ML VIAL ONE (11:59)
[2019-10-08 12:28] LABS: BASOPHILS # (AUTO) 0.1 /CMM (0.0-0.2); BASOPHILS % (AUTO) 0.7 % (0.0-2.0); EOSINOPHILS % (AUTO) 10.8 % (0.0-6.0); HEMATOCRIT 26 % (39-51); HEMOGLOBIN 8.5 g/dL (13.5-17.5); LYMPHOCYTES # (AUTO) 1.4 /CMM (0.8-4.8); LYMPHOCYTES % (AUTO) 19.6 % (20.0-44.0); MEAN CORPUSCULAR HGB CONC 32 g/dl (31.0-36.0); MEAN CORPUSCULAR VOLUME 76 fL (80-96); MONOCYTES # (AUTO) 0.5 /CMM (0.1-1.30); MONOCYTES % (AUTO) 7.2 % (2.0-12.0); NEUTROPHILS # (AUTO) 4.3 /CMM (1.8-8.9); NEUTROPHILS % (AUTO) 61.7 % (43.0-81.0); PLATELET COUNT (AUTO) 381 /CMM (150-450); RED BLOOD CELL COUNT(AUTO) 3.46 MIL/uL (4.5-6.0)
--- NOTE | 2019-10-08 12:30 | NUR ---
MS/RN NOTES Patient picked up for procedure. VSS remains stable, no complaints of pain and discomfort noted from patient.
[2019-10-08 12:41] LABS: ALBUMIN 1.8 g/dL (3.4-5.0); BILIRUBIN,TOTAL 0.3 mg/dL (0.2-1.0); CREATININE 1.2 mg/dL (0.6-1.3); PHOSPHORUS 2.3 mg/dL (2.5-4.9); POTASSIUM 3.8 mmol/L (3.5-5.1); TOTAL PROTEIN, SERUM 7.1 g/dL (6.4-8.2)
[2019-10-08] MEDS ORDERED: ANESTHESIA TRAY IN PYXIS 1 EA TRAY MC ONE (12:53)
[2019-10-08] MEDS ORDERED: BACITRACIN 50000 UNITS/VIAL ONE (12:53)
[2019-10-08] MEDS ORDERED: FENTANYL PF 100MCG/2ML AMPUL ONE (12:57)
[2019-10-08] MEDS ORDERED: VANCOMYCIN 1 GM VIAL ONE (13:22)
[2019-10-08] MEDS ORDERED: GENTAMICIN 80 MG/2 ML VIAL ONE (13:22)
--- NOTE | 2019-10-08 15:15 | NUR ---
MS/RN NOTES Received patient from OR. Rendered doctor's written orders. VSS remains stable, patient denies any pain/discomfort at this time. Will continue to monitor for any changes in condition.
[2019-10-08 15:30] VITALS: BP 116/74
[2019-10-08 15:45] VITALS: BP 126/78
[2019-10-08 15:49] LABS: HEMOGLOBIN 9.1 g/dL (13.5-17.5)
[2019-10-08 16:00] VITALS: BP 131/67
[2019-10-08] MEDS ORDERED: K PHOS NEUTRAL 250 MG TABLET PO ONE (17:00)
--- NOTE | 2019-10-08 19:28 | NUR ---
MS/RN CLOSING NOTES Patient resting in bed, A&O x 2. No complaints of pain/discomfort at this time. Breathing even and non-labored on RA, no SOB noted. No cardiac distress noted. IV access noted on R Hand #22, running NS @ 75ml/hr. No infiltration, infection, or bleeding noted on site. IV access noted on the L hand #18. patent, intact, and flushing well. Right heel dressing noted, clean, intact, and dry. Right lower extremity kept elevated and offloaded. Fall precautions maintained. Will endorse to hotel night auditor nurse.
--- NOTE | 2019-10-08 19:30 | NUR ---
MS RN OPENING NOTES RECEIVED PATIENT FROM MORNING SHIFT, ALERT AND ORIENTED X 2-3. AMHARIC SPEAKING VERBALLY RESPONSIVE AND ABLE TO FOLLOW DIRECTIONS. BREATHING REGULAR AND UNLABORED ON ROOM AIR. RIGHT HAND G22 AND LEFT HAND G18 IV LINES INTACT AND PATENT, FLUSHING WELL WITH NO BLEEDING OR S/S OF INFECTION NOTED. DENIES SUICIDAL IDEATION. COMPLAINED OF 7/10 RIGHT HIP PAIN, NON-PHARMACOLOGICAL INTERVENTIONS PROVIDED. S/P RIGHT HEEL WOUND DEBRIDEMENT, DRESSING INTACT, CLEAN AND DRY. BED LOW AND LOCKED ON SEMI FOWLERS POSITION. CALL LIGHT IN REACH. WILL CONTINUE TO MONITOR.
[2019-10-08] MEDS: HYDROCODONE/APAP 5/325MG 1 EACH TABLET PO PRN (19:41)
--- NOTE | 2019-10-08 19:45 | NUR ---
MS RN NOTES COMPLAINED OF 7/10 RIGHT HIP PAIN, NORCO 5/325 GIVEN BY MOUTH. NON-PHARMACOLOGICAL INTERVENTIONS PROVIDED. VITAL SIGNS WNL. WILL CONTINUE TO MONITOR.
[2019-10-08 20:00] VITALS: BP 122/53
[2019-10-08] MEDS: ATORVASTATIN 40 MG TABLET PO SCH (21:36)
[2019-10-08] MEDS: RIVAROXABAN 10 MG TABLET PO SCH (21:37)
[2019-10-08] MEDS: DONEPEZIL 5 MG TABLET PO SCH (21:37)
--- NOTE | 2019-10-08 22:00 | NUR ---
MS RN NOTES BS 148mg/dl, 2UNITS REGULAR INSULIN AND 15UNITS LANTUS GIVEN SQ. SITE ROTATED. ASSISTED ON EATING SNACKS. WILL CONTINUE TO MONITOR.
[2019-10-08] MEDS: INSULIN GLARGINE, 100 UNIT/ML CARTRIDGE SQ SCH (22:05)
[2019-10-08] MEDS: INSULIN REGULAR, HUMAN 100 UNIT/ML 3 ML VIAL SQ PRN (22:06)
[2019-10-09] MEDS: VANCOMYCIN 0.75 GM in IV D5W 250 ML IV SCH (01:53)
[2019-10-09] MEDS: PIPERACILLIN /TAZOBACTAM 4.5 G in IV D5W 50 ML IV SCH ×3 (05:26→17:29)
--- NOTE | 2019-10-09 06:30 | NUR ---
MS RN CLOSING NOTES PATIENT IN BED ALERT AND ORIENTED X 2-3. AFEBRILE WITH NO S/S OF DISTRESS OBSERVED. RIGHT HAND G22 AND LEFT HAND G18 IV LINES PATENT AND FLUSHING WELL. NO COMPLAINTS OF PAIN/DISCOMFORT REPORTED AT THIS TIME. BS 113mg/dl, NO INSULIN COVERAGE NEEDED. RIGHT HEEL WOUND DRESSING INTACT, CLEAN AND DRY. BED LOW AND LOCKED ON SEMI FOWLERS POSITION. CALL LIGHT IN REACH. WILL ENDORSE TO MORNING SHIFT FOR MAR.
[2019-10-09] MEDS: BLOOD SUGAR DIAGNOSTIC 1 EACH STRIP IN SCH ×4 (06:31→22:09)
[2019-10-09] MEDS: INSULIN REGULAR, HUMAN 100 UNIT/ML 3 ML VIAL SQ PRN (06:32)
--- NOTE | 2019-10-09 07:30 | NUR ---
MS/RN OPENING NOTES Patient resting in bed comfortably, A&O x 2. Patient complaints of 8/10 dull pain on the right hip, will give pain medication. Breathing even and non-labored on RA, no SOB noted. No cardiac distress noted. IV access noted on R Hand #22, running NS @ 75ml/hr. No infiltration, infection, or bleeding noted on site. IV access noted on the L hand #18. patent, intact, and flushing well. Right heel dressing noted, clean, intact, and dry. Right lower extremity kept elevated and offloaded. Fall precautions maintained. Will continue with current medical management.
--- NOTE | 2019-10-09 07:50 | NUR ---
WOUND CARE CONSULT/FOLLOW UP: PT AGREED TO BE TURNED FOR FULL ASSESSMENT OF SKIN. PT PRESENTS WITH INCONTINENCE ASSOCIATED SKIN DAMAGE TO GLUTEAL CREASE, SACRAL SCARRING AND RASH TO GROIN FOLDS AND PERINEUM, ALL PRESENT ON ADMISSION. PT NOW HAS LARGE DRESSING TO RT FOOT WHICH IS DRY AND INTACT. RT LOWER EXTREMITY ELEVATED ON PILLOW, HEEL FLOATED. RECOMMENDATIONS MADE FOR SKIN PROTECTION. DISCUSSED WITH NURSING STAFF. DEFER TO DP FOR LOWER EXTREMITY ORDERS. WILL SEE PRN. BIGGS IN AGREEMENT WITH PLAN OF CARE. Addendum: 10/09/19 at 0752 by MATHEW APARICIO WNDNU Amended: Links added.
[2019-10-09 07:59] LABS: BASOPHILS % (AUTO) 0.6 % (0.0-2.0); EOSINOPHILS % (AUTO) 5.1 % (0.0-6.0); HEMATOCRIT 25 % (39-51); HEMOGLOBIN 7.9 g/dL (13.5-17.5); LYMPHOCYTES # (AUTO) 1.6 /CMM (0.8-4.8); MEAN CORPUSCULAR HGB CONC 32 g/dl (31.0-36.0); MEAN CORPUSCULAR VOLUME 76 fL (80-96); MONOCYTES # (AUTO) 0.8 /CMM (0.1-1.30); MONOCYTES % (AUTO) 8.8 % (2.0-12.0); NEUTROPHILS # (AUTO) 5.8 /CMM (1.8-8.9); NEUTROPHILS % (AUTO) 66.5 % (43.0-81.0); PLATELET COUNT (AUTO) 375 /CMM (150-450); RED BLOOD CELL COUNT(AUTO) 3.22 MIL/uL (4.5-6.0); WHITE BLOOD COUNT (AUTO) 8.6 K/uL (4.3-11.0)
[2019-10-09 08:00] VITALS: BP 127/54
[2019-10-09 08:27] LABS: ALANINE AMINOTRANSFERASE < 6 U/L (12-78); ALBUMIN 1.8 g/dL (3.4-5.0); ALKALINE PHOSPHATASE 63 U/L (46-116); ASPARTATE AMINOTRANSFERASE 18 U/L (15-37); BILIRUBIN,TOTAL 0.3 mg/dL (0.2-1.0); CALCIUM, SERUM 7.8 mg/dL (8.5-10.1); CARBON DIOXIDE 24 mmol/L (21-32); CHLORIDE 99 mmol/L (98-107); CREATININE 1.1 mg/dL (0.6-1.3); GLUCOSE 105 mg/dL (74-106); MAGNESIUM 1.9 mg/dL (1.8-2.4); PHOSPHORUS 2.6 mg/dL (2.5-4.9); POTASSIUM 3.8 mmol/L (3.5-5.1); SODIUM SERUM 131 mmol/L (136-145); TOTAL PROTEIN, SERUM 7.1 g/dL (6.4-8.2); UREA NITROGEN, BLOOD 13 mg/dL (7-18)
[2019-10-09] MEDS: HYDROCODONE/APAP 5/325MG 1 EACH TABLET PO PRN (08:27)
[2019-10-09] MEDS: MAGNESIUM OXIDE 400 MG TABLET PO SCH ×2 (08:27→17:08)
[2019-10-09] MEDS: PANTOPRAZOLE 40 MG TABLET.DR PO SCH (08:27)
[2019-10-09] MEDS: ASCORBIC ACID 500 MG TABLET PO SCH ×2 (08:28→17:08)
[2019-10-09] MEDS: CARBIDOPA/LEVODOPA 25/100 MG 1 UDTAB PO SCH ×4 (08:28→21:39)
[2019-10-09] MEDS: LEVOTHYROXINE SODIUM 112 MCG TABLET PO SCH (08:29)
[2019-10-09] MEDS: LOSARTAN POTASSIUM 50 MG TABLET PO SCH (08:29)
[2019-10-09] MEDS: ISOSORBIDE MONONITRATE (30MG) 30 MG TAB.SR.24H PO SCH (08:29)
[2019-10-09] MEDS: MEMANTINE HCL 5 MG TABLET PO SCH ×2 (08:29→17:08)
[2019-10-09] MEDS: PIOGLITAZONE HCL 15 MG TABLET PO SCH (08:29)
[2019-10-09] MEDS: METOPROLOL TARTRATE 25 MG TABLET PO SCH ×2 (08:30→21:00)
[2019-10-09] MEDS: ZINC SULFATE 220 MG CAPSULE PO SCH (08:52)
[2019-10-09] MEDS: GABAPENTIN 100 MG CAPSULE PO SCH ×3 (08:52→17:08)
[2019-10-09] MEDS: PRAMIPEXOLE DI-HCL 0.25 MG TABLET PO SCH (08:53)
[2019-10-09] MEDS: MUPIROCIN OINT 2% 22 GM TUBE SCH ×2 (09:02→21:44)
[2019-10-09] MEDS: DAKINS QUARTER STRENGTH (0.125%) 480 ML BOTTLE TOP SCH (09:03)
[2019-10-09] MEDS: CLOTRIMAZOLE 1% 15 GM TUBE TP SCH ×2 (09:03→17:09)
[2019-10-09 16:00] VITALS: BP 102/56
[2019-10-09] MEDS: IV NS 0.9% 1,000 ML IV PRN (18:40)
--- NOTE | 2019-10-09 19:25 | NUR ---
MS/RN CLOSING NOTES Patient in bed, A&O x 2. No pain and discomfort noted, last norco given at 0827. Breathing even and non-labored on RA. No respiratory or cardiac distress noted. IV access noted on the L hand #18. patent, intact, and flushing well. IV access noted on R Hand #22, running NS @ 75ml/hr. No infiltration, infection, or bleeding noted on site. Condom cath in place, draining yellow output well. Right heel dressing noted, clean, intact, and dry. Right lower extremity kept elevated and offloaded. Fall precautions maintained. Will endorse to coal gasification technician nurse.
--- NOTE | 2019-10-09 19:30 | NUR ---
MS/RN OPENING NOTES RECEIVED PATIENT IN BED SLEEPING. PATIENT IS EASY TO AWAKEN, ALERT AND ORIENTED X 3. PATIENT IS CZECH SPEAKING AND CAN MAKE NEEDS KNOWN TO STAFF MEMBERS IN SWEDISH. NO SOB OR RESPIRATORY DISTRESS NOTED. PATIENT HAS NON LABORED BREATHING AT THIS TIME. PATIENT HAS CONDOM CATH IN PLACE DRAINING WELL, YELLOW URINE. PATIENT RIGHT HEEL DRESSING INTACT, NO ACTIVE BLEEDING NOTED. PATIENT HAS IV ACCESS ON LEFT HAND #18 G AND RIGHT HAND #22G INTACT RUNNING NS AT 75 ML/HR. PATIENT STATES NO PAIN AT THE MOMENT. SAFETY MEASURES ARE IN PLACE, BED LOCKED AND IN LOW POSITION, ALARM ON. CALL LIGHT IS WITHIN REACH.SIDE RAILS UP X 2. WILL CONTINUE TO MONITOR THROUGHOUT SHIFT.
[2019-10-09 20:00] VITALS: BP 98/48
[2019-10-09] MEDS: CEFEPIME 2 GM in IV D5W 100 ML IV SCH (21:25)
[2019-10-09] MEDS: ATORVASTATIN 40 MG TABLET PO SCH (21:39)
[2019-10-09] MEDS: DONEPEZIL 5 MG TABLET PO SCH (21:39)
[2019-10-09] MEDS: RIVAROXABAN 10 MG TABLET PO SCH (21:40)
[2019-10-09] MEDS: INSULIN GLARGINE, 100 UNIT/ML CARTRIDGE SQ SCH (22:03)
[2019-10-10] VITALS (8 sets, daily range): BP systolic 99–131; BP diastolic 47–66
[2019-10-10] MEDS: HYDROCODONE/APAP 5/325MG 1 EACH TABLET PO PRN (05:20)
--- NOTE | 2019-10-10 05:20 | NUR ---
MS/RN NOTES PATIENT WAS COMPLAINING OF PAIN AT THE RIGHT HEEL AREA. NORCO 5-325 PO WAS GIVEN. V/S WITHIN NORMAL LIMITS. WILL CONTINUE TO MONITOR PATIENT.
[2019-10-10] MEDS: BLOOD SUGAR DIAGNOSTIC 1 EACH STRIP IN SCH ×4 (06:52→22:40)
[2019-10-10] MEDS: INSULIN REGULAR, HUMAN 100 UNIT/ML 3 ML VIAL SQ PRN ×3 (06:54→16:59)
--- NOTE | 2019-10-10 07:00 | NUR ---
MS/RN CLOSING NOTES PATIENT IN BED RESTING, PATIENT IS EASY TO AWAKEN, ALERT AND ORIENTED X 3. PATIENT IS LITHUANIAN SPEAKING AND CAN MAKE NEEDS KNOWN TO STAFF MEMBERS IN [place]ELSH. NO SOB OR RESPIRATORY DISTRESS NOTED. PATIENT HAS NON LABORED BREATHING AT THIS TIME. PATIENT HAS CONDOM CATH IN PLACE DRAINING WELL, YELLOW URINE OUTPUT 300ML. PATIENT RIGHT HEEL DRESSING INTACT, NO ACTIVE BLEEDING NOTED. PATIENT HAS IV ACCESS ON LEFT HAND #18 G AND RIGHT HAND #22G INTACT RUNNING NS AT 75 ML/HR. PATIENT STATES NO PAIN AT THE MOMENT. ALL NEEDS HAVE BEEN MET DURING THIS SHIFT. SAFETY MEASURES ARE IN PLACE, BED LOCKED AND IN LOW POSITION, ALARM ON. CALL LIGHT IS WITHIN REACH.SIDE RAILS UP X 2. WILL ENDORSE CARE TO DAY SHIFT.
--- NOTE | 2019-10-10 08:00 | NUR ---
received pt. this am alert and oriented x3,tamazight speaking,vs stable.no acute distress.
[2019-10-10 08:28] LABS: BASOPHILS % (AUTO) 0.7 % (0.0-2.0); EOSINOPHILS % (AUTO) 7.4 % (0.0-6.0); HEMATOCRIT 22 % (39-51); HEMOGLOBIN 7.1 g/dL (13.5-17.5); LYMPHOCYTES # (AUTO) 1.4 /CMM (0.8-4.8); LYMPHOCYTES % (AUTO) 19.4 % (20.0-44.0); MEAN CORPUSCULAR HGB CONC 32 g/dl (31.0-36.0); MEAN CORPUSCULAR VOLUME 76 fL (80-96); MONOCYTES # (AUTO) 0.5 /CMM (0.1-1.30); MONOCYTES % (AUTO) 6.7 % (2.0-12.0); NEUTROPHILS # (AUTO) 4.9 /CMM (1.8-8.9); NEUTROPHILS % (AUTO) 65.8 % (43.0-81.0); PLATELET COUNT (AUTO) 321 /CMM (150-450); RED BLOOD CELL COUNT(AUTO) 2.89 MIL/uL (4.5-6.0); WHITE BLOOD COUNT (AUTO) 7.4 K/uL (4.3-11.0)
[2019-10-10 08:32] LABS: CALCIUM, SERUM 7.9 mg/dL (8.5-10.1); CREATININE 1.2 mg/dL (0.6-1.3); POTASSIUM 3.5 mmol/L (3.5-5.1)
[2019-10-10] MEDS: METOPROLOL TARTRATE 25 MG TABLET PO SCH ×2 (09:00→22:14)
[2019-10-10] MEDS: CLOTRIMAZOLE 1% 15 GM TUBE TP SCH ×2 (09:00→16:57)
[2019-10-10] MEDS: LOSARTAN POTASSIUM 50 MG TABLET PO SCH (09:00)
[2019-10-10] MEDS: DAKINS QUARTER STRENGTH (0.125%) 480 ML BOTTLE TOP SCH (09:00)
[2019-10-10] MEDS: ISOSORBIDE MONONITRATE (30MG) 30 MG TAB.SR.24H PO SCH (09:00)
[2019-10-10] MEDS: CEFEPIME 2 GM in IV D5W 100 ML IV SCH ×2 (10:37→20:56)
[2019-10-10] MEDS: PRAMIPEXOLE DI-HCL 0.25 MG TABLET PO SCH (11:16)
[2019-10-10] MEDS: MEMANTINE HCL 5 MG TABLET PO SCH ×2 (11:16→16:47)
[2019-10-10] MEDS: ZINC SULFATE 220 MG CAPSULE PO SCH (11:17)
[2019-10-10] MEDS: PIOGLITAZONE HCL 15 MG TABLET PO SCH (11:17)
[2019-10-10] MEDS: GABAPENTIN 100 MG CAPSULE PO SCH ×4 (11:17→16:46)
[2019-10-10] MEDS: MAGNESIUM OXIDE 400 MG TABLET PO SCH ×2 (11:17→16:47)
[2019-10-10] MEDS: CARBIDOPA/LEVODOPA 25/100 MG 1 UDTAB PO SCH ×5 (11:17→22:14)
[2019-10-10] MEDS: PANTOPRAZOLE 40 MG TABLET.DR PO SCH (11:17)
[2019-10-10] MEDS: LEVOTHYROXINE SODIUM 112 MCG TABLET PO SCH (11:18)
[2019-10-10] MEDS: ASCORBIC ACID 500 MG TABLET PO SCH ×2 (11:18→16:47)
--- NOTE | 2019-10-10 11:20 | NUR ---
endorsed pt. to other rn alonsoem.given full report.
[2019-10-10] MEDS: MUPIROCIN OINT 2% 22 GM TUBE SCH ×2 (11:21→22:42)
[2019-10-10] MEDS: VANCOMYCIN 0.75 GM in IV D5W 250 ML IV SCH (13:01)
[2019-10-10] MEDS: IV NS 0.9% 1,000 ML IV PRN (13:11)
--- NOTE | 2019-10-10 19:23 | NUR ---
RN CLOSING NOTES PATIENT REMAINED IN STABLE CONDITION THROUGHOUT MY SHIFT. TOLERATED BLOOD TRANSFUSION WELL. PATIENT HAS NON LABORED BREATHING, O2 SATURATION AT 95%, VITAL SIGNS ARE STABLE. NO ACUTE CHANGED DURING MY SHIFT, ALL PATIENT NEEDS MET, CALL LIGHT WITHIN REACH, ENDORSED TO PM NURSE FOR MAR.
--- NOTE | 2019-10-10 20:00 | NUR ---
MS RN OPENING NOTE Received patient awake in bed. A/O x3, greenlandic speaking only. Breath sounds clear, even, unlabored. No signs of SOB or distress. Skin warm, pink, dry, appropriate for ethnicity. Wound dressing to right heel. Dressing clean, dry, intact, no drainage noted. IV site left hand 18g, patent and intact, saline locked. IV site right hand 22g running NS @ 75 ml/hr, no signs of infiltration. Bowel sounds normoactive in all quadrants. Bed in low position, wheels locked, side rails up x2, call light within reach.
[2019-10-10] MEDS: ATORVASTATIN 40 MG TABLET PO SCH (22:14)
[2019-10-10] MEDS: DONEPEZIL 5 MG TABLET PO SCH (22:15)
[2019-10-10] MEDS: RIVAROXABAN 10 MG TABLET PO SCH (22:18)
[2019-10-10] MEDS: INSULIN GLARGINE, 100 UNIT/ML CARTRIDGE SQ SCH (22:34)
[2019-10-11 06:19] LABS: BASOPHILS % (AUTO) 0.4 % (0.0-2.0); EOSINOPHILS % (AUTO) 9.3 % (0.0-6.0); HEMATOCRIT 26 % (39-51); HEMOGLOBIN 8.5 g/dL (13.5-17.5); LYMPHOCYTES # (AUTO) 1.3 /CMM (0.8-4.8); LYMPHOCYTES % (AUTO) 17.9 % (20.0-44.0); MEAN CORPUSCULAR HGB CONC 33 g/dl (31.0-36.0); MEAN CORPUSCULAR VOLUME 78 fL (80-96); MONOCYTES # (AUTO) 0.4 /CMM (0.1-1.30); MONOCYTES % (AUTO) 6.1 % (2.0-12.0); NEUTROPHILS # (AUTO) 4.8 /CMM (1.8-8.9); NEUTROPHILS % (AUTO) 66.3 % (43.0-81.0); PLATELET COUNT (AUTO) 354 /CMM (150-450); RED BLOOD CELL COUNT(AUTO) 3.39 MIL/uL (4.5-6.0); WHITE BLOOD COUNT (AUTO) 7.2 K/uL (4.3-11.0)
--- NOTE | 2019-10-11 06:25 | NUR ---
MS/RN CLOSING NOTE Patient awake in bed. A/O x3. Haitian speaking only. No SOB or distress noted. Patient denies pain. Breathing clear, even, unlabored. Skin warm, pink, dry, appropriate for ethnicity. Wound dressing to right heel clean, dry, intact. Abdomen soft, round, non-distended. Condom catheter in place. Urinary output clear, yellow, no sediment. IV site left hand 18g patent intact, saline lock. IV site right hand 22g, saline lock, patent, intact. IV site ANGELA running NS @ 75 ml/hr. No signs of infiltration. Bed in low position, wheels locked, side rails up x2, call light within reach.
[2019-10-11] MEDS: BLOOD SUGAR DIAGNOSTIC 1 EACH STRIP IN SCH ×2 (06:50→12:44)
[2019-10-11 06:53] LABS: CALCIUM, SERUM 8.1 mg/dL (8.5-10.1); CREATININE 1.1 mg/dL (0.6-1.3); MAGNESIUM 1.9 mg/dL (1.8-2.4); PHOSPHORUS 2.1 mg/dL (2.5-4.9); POTASSIUM 3.5 mmol/L (3.5-5.1)
[2019-10-11 06:58] LABS: URIC ACID 2.4 mg/dL (2.6-7.2)
--- NOTE | 2019-10-11 07:46 | NUR ---
MS/RN OPENING NOTES RECEIVED PATIENT RESTING IN BED COMFORTABLY WITH NO ACUTE DISTRESS NOTED. ALERT AND ORIENTED X3 SAMI SPEAKING. CALL LIGHT WITHIN REACH. WILL CONTINUE TO MONITOR.
[2019-10-11 08:00] VITALS: BP 120/55
[2019-10-11] MEDS: LEVOTHYROXINE SODIUM 112 MCG TABLET PO SCH (08:01)
[2019-10-11] MEDS: PANTOPRAZOLE 40 MG TABLET.DR PO SCH (08:01)
[2019-10-11] MEDS: MAGNESIUM OXIDE 400 MG TABLET PO SCH (08:57)
[2019-10-11] MEDS: GABAPENTIN 100 MG CAPSULE PO SCH ×2 (08:59→13:20)
[2019-10-11] MEDS: PRAMIPEXOLE DI-HCL 0.25 MG TABLET PO SCH (08:59)
[2019-10-11] MEDS: ASCORBIC ACID 500 MG TABLET PO SCH (08:59)
[2019-10-11] MEDS: LOSARTAN POTASSIUM 50 MG TABLET PO SCH (08:59)
[2019-10-11] MEDS: METOPROLOL TARTRATE 25 MG TABLET PO SCH (08:59)
[2019-10-11] MEDS: PIOGLITAZONE HCL 15 MG TABLET PO SCH (08:59)
[2019-10-11 09:00] VITALS: BP 120/55
[2019-10-11] MEDS: CARBIDOPA/LEVODOPA 25/100 MG 1 UDTAB PO SCH ×2 (09:00→13:20)
[2019-10-11] MEDS: ZINC SULFATE 220 MG CAPSULE PO SCH (09:00)
[2019-10-11] MEDS: ISOSORBIDE MONONITRATE (30MG) 30 MG TAB.SR.24H PO SCH (09:00)
[2019-10-11] MEDS: MUPIROCIN OINT 2% 22 GM TUBE SCH (09:07)
[2019-10-11] MEDS: DAKINS QUARTER STRENGTH (0.125%) 480 ML BOTTLE TOP SCH (09:07)
[2019-10-11] MEDS: CLOTRIMAZOLE 1% 15 GM TUBE TP SCH (09:08)
[2019-10-11] MEDS: CEFEPIME 2 GM in IV D5W 100 ML IV SCH (09:11)
[2019-10-11] MEDS: MEMANTINE HCL 5 MG TABLET PO SCH (09:18)
--- NOTE | 2019-10-11 14:45 | NUR ---
MS/RN NOTES PATIENT IS ALERT AND ORIENTED X4. PATIENT DENIES PAIN AT THIS TIME . IN ROOM AIR AND SATURATION IS AT 100%. RESPIRATION REGULAR AND UNLABORED. THE PATIENT IN NO APPARENT RESPIRATORY DISTRESS. SEEN AND EXAMINED BY MD WITH ORDERS MADE AND CARRIED OUT. ALL DUE MEDICATION WAS GIVEN. PATIENT DISCHARGED AT 1438. GIVE REPORT TO YUE SHAH. PATIENT WAS GIVEN DISCHARGED INSTRUCTIONS AND PATIENT VERBALIZED UNDERSTANDING. PATIENT LEFT THE HOSPITAL IN STABLE CONDITION, BROADCAST ENGINEER BY 2 EMT VIA AMBULANCE.
== END 2019-10-11 14:40 | DRG 623 ==
LOC: ER 10:54 → MED 14:29
PROC: 0KBV0ZZ Excision of Right Foot Muscle, Open Approach (ICD-10-PCS; principal; 2019-10-08)
PROC: 0QBL0ZZ Excision of Right Tarsal, Open Approach (ICD-10-PCS; 2019-10-08)
PROC: 30233N1 Transfusion of Nonautologous Red Blood Cells into Peripheral Vein, Percutaneous Approach (ICD-10-PCS; 2019-10-10)
PROC: 02HV33Z Insertion of Infusion Device into Superior Vena Cava, Percutaneous Approach (ICD-10-PCS; 2019-10-10)
PROC: B548ZZA Ultrasonography of Superior Vena Cava, Guidance (ICD-10-PCS; 2019-10-10)
DX: E11.69 Type 2 diabetes mellitus with other specified complication (principal); E87.1 Hypo-osmolality and hyponatremia; M86.8X7 Other osteomyelitis, ankle and foot; L03.115 Cellulitis of right lower limb; E44.0 Moderate protein-calorie malnutrition; F02.80 Dementia in other diseases classified elsewhere, unspecified severity, without behavioral disturbance, psychotic disturbance, mood disturbance, and anxiety; G20 Parkinson's disease; E78.5 Hyperlipidemia, unspecified; I25.10 Atherosclerotic heart disease of native coronary artery without angina pectoris; K21.9 Gastro-esophageal reflux disease without esophagitis; I12.9 Hypertensive chronic kidney disease with stage 1 through stage 4 chronic kidney disease, or unspecified chronic kidney disease; N18.2 Chronic kidney disease, stage 2 (mild); E11.51 Type 2 diabetes mellitus with diabetic peripheral angiopathy without gangrene; E03.9 Hypothyroidism, unspecified; Z89.512 Acquired absence of left leg below knee; Z79.01 Long term (current) use of anticoagulants; E86.1 Hypovolemia; D63.8 Anemia in other chronic diseases classified elsewhere; E11.40 Type 2 diabetes mellitus with diabetic neuropathy, unspecified; E11.621 Type 2 diabetes mellitus with foot ulcer; L97.519 Non-pressure chronic ulcer of other part of right foot with unspecified severity; H54.8 Legal blindness, as defined in USA; E11.22 Type 2 diabetes mellitus with diabetic chronic kidney disease; Z88.0 Allergy status to penicillin
CPT/HCPCS: 36415; 71045-TC; 73630-TC; 80048-TC; 80053-TC; 80061-TC; 80076-TC; 80202-TC; 81000-TC; 82962-TC; 83605-TC; 83735-TC; 84100-TC; 84443-TC; 84484-TC; 84550-TC; 85025-TC; 85027-TC; 85652-TC; 85730-TC; 86140-TC; 86850-TC; 86921-TC; 87040-TC; 87070-TC; 87081-TC; 87186-TC; 88305-TC; 88311-TC; 93926-TC; A4349; A6253; A6402; A6403; C1713; G0378; J0692; J1580; J1815; J2543; J2704; J3010; J3370; J3490; J7030; J7040; J7050; J7060; P9016-BL

== ENCOUNTER 2019-10-31 11:45 | Outpatient (CLI) | payer MEDICARE, OTHER ==
[~2019-10-31 11:45] MED LIST: ACET-868 PO; ARGI1POW13 PO; ASCO500T10 PO; ATOR40TA PO; CALC355O18 PO; CARB-93 PO; DONE10TA44 PO; FAMO40TA7 PO; GABA-532 PO; INSU100V7 SQ; ISOS30TA6 PO; LEVO100T9 PO; LOSA100T31 PO; MAGN400T8 PO; MEMA10TA PO; METO25TA6 PO; MIRT15TA7 PO; PIOG30TA10 PO; PRAM0.253 PO; RIVA10TA PO; ZINC220T4 PO
== END 2019-10-31 23:59 ==
LOC: WOU 11:45
PROVIDERS: ATTEND Podiatrist Foot & Ankle Surgery
DX: E11.621 Type 2 diabetes mellitus with foot ulcer (principal); L97.416 Non-pressure chronic ulcer of right heel and midfoot with bone involvement without evidence of necrosis; L97.512 Non-pressure chronic ulcer of other part of right foot with fat layer exposed; L03.115 Cellulitis of right lower limb; E11.42 Type 2 diabetes mellitus with diabetic polyneuropathy; E11.51 Type 2 diabetes mellitus with diabetic peripheral angiopathy without gangrene; E11.69 Type 2 diabetes mellitus with other specified complication; M86.671 Other chronic osteomyelitis, right ankle and foot; Z79.4 Long term (current) use of insulin; Z99.3 Dependence on wheelchair; Z79.899 Other long term (current) drug therapy; Z89.512 Acquired absence of left leg below knee
CPT/HCPCS: 11044; 11047; 87070-TC; 87186-TC

== ENCOUNTER 2019-11-07 13:10 | Outpatient (CLI) | payer MEDICARE, OTHER ==
[2019-11-07] MEDS ORDERED: GENTAMICIN 0.1% CREAM 15 GM TUBE ONE (13:38)
[2019-11-07] MEDS ORDERED: MUPIROCIN 2% CREAM 15 GM TUBE TP ONE (13:39)
== END 2019-11-07 23:59 ==
LOC: WOU 13:10
PROVIDERS: ATTEND Podiatrist Foot & Ankle Surgery
DX: E11.621 Type 2 diabetes mellitus with foot ulcer (principal); L97.416 Non-pressure chronic ulcer of right heel and midfoot with bone involvement without evidence of necrosis; L97.512 Non-pressure chronic ulcer of other part of right foot with fat layer exposed; L03.115 Cellulitis of right lower limb; E11.51 Type 2 diabetes mellitus with diabetic peripheral angiopathy without gangrene; E11.69 Type 2 diabetes mellitus with other specified complication; M86.671 Other chronic osteomyelitis, right ankle and foot; Z79.899 Other long term (current) drug therapy; Z89.512 Acquired absence of left leg below knee; Z99.3 Dependence on wheelchair; Z79.4 Long term (current) use of insulin
CPT/HCPCS: 11042; 11043

== ENCOUNTER 2019-11-14 13:00 | Outpatient (CLI) | payer MEDICARE, OTHER ==
[2019-11-14] MEDS ORDERED: UREA 10% -AHA 4% CREAM 57 GM TUBE ONE (14:09)
== END 2019-11-14 23:59 ==
LOC: WOU 13:00
PROVIDERS: ATTEND Podiatrist Foot & Ankle Surgery
DX: E11.621 Type 2 diabetes mellitus with foot ulcer (principal); L97.416 Non-pressure chronic ulcer of right heel and midfoot with bone involvement without evidence of necrosis; L97.518 Non-pressure chronic ulcer of other part of right foot with other specified severity; E11.42 Type 2 diabetes mellitus with diabetic polyneuropathy; E11.51 Type 2 diabetes mellitus with diabetic peripheral angiopathy without gangrene; E11.69 Type 2 diabetes mellitus with other specified complication; M86.671 Other chronic osteomyelitis, right ankle and foot; L03.115 Cellulitis of right lower limb; Z79.4 Long term (current) use of insulin; Z79.899 Other long term (current) drug therapy
CPT/HCPCS: 11043

== ENCOUNTER 2019-11-21 15:00 | Outpatient (CLI) | payer MEDICARE, OTHER | END 2019-11-21 23:59 | disposition home health service (06) | LOC: WOU 15:00 | PROVIDERS: ATTEND Podiatrist Foot & Ankle Surgery | DX: E11.621 Type 2 diabetes mellitus with foot ulcer (principal); L97.416 Non-pressure chronic ulcer of right heel and midfoot with bone involvement without evidence of necrosis; E11.42 Type 2 diabetes mellitus with diabetic polyneuropathy; E11.51 Type 2 diabetes mellitus with diabetic peripheral angiopathy without gangrene; E11.69 Type 2 diabetes mellitus with other specified complication; M86.671 Other chronic osteomyelitis, right ankle and foot; Z79.4 Long term (current) use of insulin; Z89.512 Acquired absence of left leg below knee; Z99.3 Dependence on wheelchair | CPT/HCPCS: 11043 ==

== ENCOUNTER 2019-11-28 13:45 | Outpatient (CLI) | payer MEDICARE, OTHER ==
[2019-11-28] MEDS ORDERED: LIDOCAINE SOLN 4% 50 ML BOTTLE ONE (13:51)
[2019-11-28] MEDS ORDERED: CHOL100040 PO (16:40)
[2019-11-28] MEDS ORDERED: PANT40TA4 PO (16:40)
[2019-11-28] MEDS ORDERED: AMIN30LI27 PO (16:40)
[2019-11-28] MEDS ORDERED: INSU100V10 SQ (16:40)
[2019-11-28] MEDS ORDERED: LEVO88TA5 PO (16:40)
[2019-11-28] MEDS ORDERED: MULT-447 PO (16:40)
== END 2019-11-28 23:59 ==
LOC: WOU 13:45
PROVIDERS: ATTEND Podiatrist Foot & Ankle Surgery
DX: E11.621 Type 2 diabetes mellitus with foot ulcer (principal); L97.416 Non-pressure chronic ulcer of right heel and midfoot with bone involvement without evidence of necrosis; L97.512 Non-pressure chronic ulcer of other part of right foot with fat layer exposed; E11.42 Type 2 diabetes mellitus with diabetic polyneuropathy; E11.51 Type 2 diabetes mellitus with diabetic peripheral angiopathy without gangrene; E11.69 Type 2 diabetes mellitus with other specified complication; M86.671 Other chronic osteomyelitis, right ankle and foot; Z79.4 Long term (current) use of insulin; Z89.512 Acquired absence of left leg below knee; Z99.3 Dependence on wheelchair
CPT/HCPCS: 11042; 11043; 82962-TC

== ENCOUNTER 2019-11-28 15:37 | Inpatient (IN) | payer MEDICARE, OTHER ==
[~2019-11-28] VITALS: Ht 165.1 cm; Wt 86.9 kg
[2019-11-28] VITALS (9 sets, daily range): BP systolic 105–165; BP diastolic 45–98
--- NOTE | 2019-11-28 15:40 | NUR ---
AAOx1, BIB RN from [facility] for altered mental status, per family report the patient started having this symptom 3 days ago. Bilateral strong and equal weekend receptionist. Confused. RR is even and unlabored with NAD noted. Placed on the monitor. Started IVHL RAC 18g, blood drawn and sent to the lab. Skin is warm and dry. Hypotensive upon arrival. BS 156MG/DL. Dr Calderon at bs for eval.
--- NOTE | 2019-11-28 15:45 | NUR ---
EKG in progress at BS
[2019-11-28 15:58] LABS: BASOPHILS # (AUTO) 0.1 /CMM (0.0-0.2); BASOPHILS % (AUTO) 0.9 % (0.0-2.0); EOSINOPHILS % (AUTO) 6.2 % (0.0-6.0); HEMATOCRIT 30 % (39-51); HEMOGLOBIN 9.3 g/dL (13.5-17.5); LYMPHOCYTES # (AUTO) 3.8 /CMM (0.8-4.8); LYMPHOCYTES % (AUTO) 43.2 % (20.0-44.0); MEAN CORPUSCULAR HGB CONC 32 g/dl (31.0-36.0); MEAN CORPUSCULAR VOLUME 79 fL (80-96); MONOCYTES # (AUTO) 0.7 /CMM (0.1-1.30); NEUTROPHILS # (AUTO) 3.7 /CMM (1.8-8.9); NEUTROPHILS % (AUTO) 41.7 % (43.0-81.0); PLATELET COUNT (AUTO) 249 /CMM (150-450); RED BLOOD CELL COUNT(AUTO) 3.75 MIL/uL (4.5-6.0); WHITE BLOOD COUNT (AUTO) 8.8 K/uL (4.3-11.0)
[2019-11-28] MEDS ORDERED: IV NS 0.9% 1,000 ML IV ONE ×2 (16:00→19:00)
--- NOTE | 2019-11-28 16:01 | NUR ---
Patient transported for CT via gurney.
--- NOTE | 2019-11-28 16:06 | NUR ---
PATIENT REFUSED BAINS CATH INSERTION. PATIENT CONTINENT, ABLE TO PROVIDE URINE SAMPLE. SENT SAMPLE TO LAB
[2019-11-28 16:12] LABS: CALCIUM, SERUM 8.8 mg/dL (8.5-10.1); CARBON DIOXIDE 26 mmol/L (21-32); CHLORIDE 99 mmol/L (98-107); CREATININE 1.6 mg/dL (0.6-1.3); GLUCOSE 171 mg/dL (74-106); POTASSIUM 4.6 mmol/L (3.5-5.1); SODIUM SERUM 133 mmol/L (136-145); UREA NITROGEN, BLOOD 31 mg/dL (7-18)
[2019-11-28 16:19] LABS: ALANINE AMINOTRANSFERASE 8 U/L (12-78); ALBUMIN 2.8 g/dL (3.4-5.0); ALKALINE PHOSPHATASE 92 U/L (46-116); ASPARTATE AMINOTRANSFERASE 19 U/L (15-37); BILIRUBIN,DIRECT 0.1 mg/dL (0.0-0.2); BILIRUBIN,TOTAL 0.3 mg/dL (0.2-1.0); TOTAL PROTEIN, SERUM 8.1 g/dL (6.4-8.2)
[2019-11-28] MEDS ORDERED: CHOL100040 PO (16:40)
[2019-11-28] MEDS ORDERED: AMIN30LI27 PO (16:40)
[2019-11-28] MEDS ORDERED: INSU100V10 SQ (16:40)
[2019-11-28] MEDS ORDERED: MULT-447 PO (16:40)
[2019-11-28] MEDS ORDERED: PANT40TA4 PO (16:40)
[2019-11-28] MEDS ORDERED: LEVO88TA5 PO (16:40)
[2019-11-28 17:09] LABS: APPEARANCE,URINE Clear (CLEAR); BILIRUBIN,URINE Negative (NEGATIVE); BLOOD, URINE Negative Ery/uL (NEGATIVE); COLOR,URINE Yellow (YELLOW); KETONES,URINE Negative (NEGATIVE); LEUKOCYTE ESTERASE ,URINE Negative (NEGATIVE); NITRITE, URINE Negative (NEGATIVE); PH,URINE 5.5 (5.0-8.0); PROTEIN,URINE 30 mg/dl (NEGATIVE); UGLUCOSE Negative (NEGATIVE); UROBILINOGEN,URINE 0.2 EU/dL (0.2)
[2019-11-28 17:26] LABS: BACTERIA,URINE Rare /HPF (None Seen); RBC,URINE 0-2 /HPF (0-2); SQUAMOUS EPITHELIAL CELL,UR Few /HPF (None Seen); URINE AMORPHOUS URATE Few /HPF (None Seen); WBC,URINE 0-2 /HPF (0-3)
[2019-11-28 17:27] LABS: MUCUS,URINE Few /LPF (None Seen)
[2019-11-28] MEDS ORDERED: MEROPENEM 1,000 MG in IV NS 0.9% 100 ML IV ONE (17:30)
--- NOTE | 2019-11-28 17:52 | NUR ---
RAPID COVID SWAB DONE AND SENT TO LAB
--- NOTE | 2019-11-28 18:40 | NUR ---
MADE MD AWARE OF PATIENT'S BP, RECEIVED VERBAL ORDER OF 1L NS BOLUS IVPB. CARRIED OUT. POSITIONED PATIENT IN [place] POSITION.
--- NOTE | 2019-11-28 18:42 | NUR ---
CALLED [facility] TO INFORM OF PT HAVING LOW BP.
--- NOTE | 2019-11-28 18:47 | NUR ---
MADE MANAGER INFRASTRUCTURE AWARE OF THE NEED FOR PICC LINE NURSE. WILL CALL BACK FOR ETA.
--- NOTE | 2019-11-28 18:49 | NUR ---
CONCRETE CONVEYOR OPERATOR BALA AWARE OF PATIENT'S LOW BLOOD PRESSURE.
[2019-11-28] MEDS ORDERED: IV NS 0.9% 1,000 ML IV PRN (19:07)
--- NOTE | 2019-11-28 19:24 | NUR ---
PER DR RIGGS, REPEAT CBC BEFORE TRANSPORTING PT TO ICU. LAB MADE AWARE
[2019-11-28] MEDS ORDERED: ACETAMINOPHEN 325 MG TABLET PO PRN (19:30)
[2019-11-28] MEDS ORDERED: MORPHINE SULFATE INJ 2 MG/ML DISP.SYRIN IV PRN (19:30)
[2019-11-28] MEDS ORDERED: NOREPINEPHRINE 8 MG in IV NS 0.9% 242 ML IV PRN (19:30)
[2019-11-28] MEDS ORDERED: MAG HYDROX/AL HYDROX/SIMETH 30 ML UDC PO PRN (19:30)
[2019-11-28] MEDS ORDERED: MAGNESIUM HYDROXIDE 30 ML UDC PO PRN (19:30)
[2019-11-28] MEDS ORDERED: Z GUARD REMEDY 2 OZ OINT TP PRN (19:30)
[2019-11-28] MEDS ORDERED: ONDANSETRON HCL/PF 4 MG/2 ML VIAL IVP PRN (19:30)
--- NOTE | 2019-11-28 19:36 | NUR ---
REPEAT BLOOD DRAW DONE AND SENT TO LAB
--- NOTE | 2019-11-28 19:38 | NUR ---
REPORT GIVEN TO BERTRAM SHAH OF ICU.
[2019-11-28 19:42] LABS: BASOPHILS # (AUTO) 0.1 /CMM (0.0-0.2); BASOPHILS % (AUTO) 0.8 % (0.0-2.0); EOSINOPHILS % (AUTO) 2.3 % (0.0-6.0); HEMATOCRIT 30 % (39-51); HEMOGLOBIN 9.2 g/dL (13.5-17.5); LYMPHOCYTES # (AUTO) 1.2 /CMM (0.8-4.8); LYMPHOCYTES % (AUTO) 18.2 % (20.0-44.0); MEAN CORPUSCULAR HGB CONC 31 g/dl (31.0-36.0); MEAN CORPUSCULAR VOLUME 81 fL (80-96); MONOCYTES # (AUTO) 0.4 /CMM (0.1-1.30); MONOCYTES % (AUTO) 6.7 % (2.0-12.0); NEUTROPHILS # (AUTO) 4.7 /CMM (1.8-8.9); PLATELET COUNT (AUTO) 202 /CMM (150-450); RED BLOOD CELL COUNT(AUTO) 3.72 MIL/uL (4.5-6.0); WHITE BLOOD COUNT (AUTO) 6.6 K/uL (4.3-11.0)
--- NOTE | 2019-11-28 19:43 | NUR ---
PICC LINE CONSENT FORM OBTAINED.
--- NOTE | 2019-11-28 19:55 | NUR ---
REceived patient from ER, awake,alert,converses(speaks Khmer,states understands only little Wallisian),follows commands,oriented to name only. Not in any distress,breathing regular and non labored. [facility] who had Debridement of right foot diabetic ulcer(patient is a resident at [facility]),noted to have low BP and as per patient has been with AMS for past [address] head done in ER (-), given NSS bolus of 2 liters and BP improved, being admitted to ICU for closer monitory and for possible Pressors administration if needed. Pending PICC line insertion.
[2019-11-28] MEDS ORDERED: FEE PK DOSING 1 MIN EA MC ONE (19:58)
--- NOTE | 2019-11-28 20:00 | NUR ---
WITH LEFT BKA, S/P RIGHT FOOT ULCER DEBRIDEMENT (IN [facility]) TODAY,DRESSING DRY AND INTACT WITH NO S/S OF BLEEDING.
--- NOTE | 2019-11-28 20:01 | NUR ---
PT TRANSFERRED TO ROOM 257 VIA ACLS PROTOCOL
[2019-11-28 20:25] LABS: IRON, SERUM 20 ug/dl (50-175); TOTAL IRON BINDING CAPACITY 312 ug/dl (250-450)
[2019-11-28] MEDS: VANCOMYCIN 0.75 GM in IV D5W 250 ML IV SCH (21:20)
--- NOTE | 2019-11-28 22:00 | NUR ---
REFUSED BAINS CATHETER INSERTION.
--- NOTE | 2019-11-28 23:00 | NUR ---
PICC LINE INSERTED BY EDWIN MILLER.
[2019-11-29] VITALS (29 sets, daily range): BP systolic 88–159; BP diastolic 49–90
--- NOTE | 2019-11-29 02:00 | NUR ---
VERIFIED WITH DR. ORTEGA IF RIGHT FOOT DRESSING (POST WOUND DEBRIDEMENT) CAN BE REMOVED/CHANGED, PER HIM JUST TO LEAVE DRESSING TONIGHT SINCE PATIENT JUST HAD THE DEBRIDEMENT DONE YESTERDAY(11/28/19)
--- NOTE | 2019-11-29 04:00 | NUR ---
BP STABLE,SEEMS LESS CONFUSED ,COOPERATIVE ,FOLLOWS COMMANDS.
[2019-11-29 06:03] LABS: ALBUMIN 2.7 g/dL (3.4-5.0); BILIRUBIN,TOTAL 0.2 mg/dL (0.2-1.0); CALCIUM, SERUM 8.1 mg/dL (8.5-10.1); CREATININE 1.3 mg/dL (0.6-1.3); MAGNESIUM 1.8 mg/dL (1.8-2.4); PHOSPHORUS 3.1 mg/dL (2.5-4.9); POTASSIUM 4.5 mmol/L (3.5-5.1); TOTAL PROTEIN, SERUM 8.2 g/dL (6.4-8.2)
[2019-11-29 06:05] LABS: THYROID STIMULATING HORMONE 5.698 uIU/mL (0.358-3.74)
[2019-11-29 06:08] LABS: BASOPHILS % (AUTO) 0.6 % (0.0-2.0); EOSINOPHILS % (AUTO) 3.3 % (0.0-6.0); HEMATOCRIT 29 % (39-51); HEMOGLOBIN 9.3 g/dL (13.5-17.5); LYMPHOCYTES # (AUTO) 1.1 /CMM (0.8-4.8); MEAN CORPUSCULAR HGB CONC 32 g/dl (31.0-36.0); MEAN CORPUSCULAR VOLUME 78 fL (80-96); MONOCYTES # (AUTO) 0.4 /CMM (0.1-1.30); MONOCYTES % (AUTO) 6.7 % (2.0-12.0); NEUTROPHILS # (AUTO) 3.7 /CMM (1.8-8.9); NEUTROPHILS % (AUTO) 68.4 % (43.0-81.0); PLATELET COUNT (AUTO) 245 /CMM (150-450); RED BLOOD CELL COUNT(AUTO) 3.78 MIL/uL (4.5-6.0); WHITE BLOOD COUNT (AUTO) 5.5 K/uL (4.3-11.0)
--- NOTE | 2019-11-29 07:00 | NUR ---
DK,REPORT GIVEN TO MOHAN SHAH
--- NOTE | 2019-11-29 08:00 | NUR ---
received pt from night filler, alert, follows commands, SR, on 2L 02 sat well, lungs clear, no edema, tolerates diet, condom cath, v/s stable, no pain, pt turned and repositioned, R foot dressing intact, L BKA.
[2019-11-29] MEDS: LEVOTHYROXINE SODIUM 88 MCG TABLET PO SCH (09:30)
[2019-11-29] MEDS: VANCOMYCIN 0.75 GM in IV D5W 250 ML IV SCH ×2 (09:30→21:08)
[2019-11-29] MEDS: IV NS 0.9% 1,000 ML IV PRN ×2 (09:41→19:05)
--- NOTE | 2019-11-29 12:00 | NUR ---
RN NOTES PATIENT RESTING ,NO ACUTE RESPIRATORY DISTRESS, PER SENIOR RESEARCH EXECUTIVE TRANSFER PATIENT TO THE MED/SURGE, HOSPITALIST AWARE OF. ASSIST TURN AND REPOSTION Q 2 HR. CHECKED RESTRAIN Q 2HR FOR CIRCULATION BUE.
[2019-11-29] MEDS: SOD FERRIC GLUC 125 MG in IV NS 0.9% 100 ML IV SCH (13:50)
[2019-11-29] MEDS ORDERED: *INSULIN REGULAR(HUMULIN R)HUM 100 UNIT/ML VIAL SQ PRN (14:30)
[2019-11-29] MEDS ORDERED: DEXTROSE 50%-WATER 50 ML DISP.SYRIN IV PRN (14:30)
--- NOTE | 2019-11-29 16:02 | NUR ---
rn notes patient will transfer to the med/surge per hospitalist's order, room 200.
[2019-11-29] MEDS: RIVAROXABAN 10 MG TABLET PO SCH (16:08)
[2019-11-29] MEDS: BLOOD SUGAR DIAGNOSTIC 1 EACH STRIP VI SCH ×2 (16:17→21:39)
[2019-11-29] MEDS: INSULIN REGULAR, HUMAN 100 UNIT/ML 3 ML VIAL SQ PRN (16:21)
--- NOTE | 2019-11-29 18:30 | NUR ---
rn notes patient transferred med /surge/tele at this time. Patient confused, a/o x1, on o2-2lNC, bs-156 mg/dl, coverage given, administered scheduled medication. Patient stable, no acute respiratory distress, on restrain, total care. Report given PABLO Edge. RN verbalized understanding.
--- NOTE | 2019-11-29 18:50 | NUR ---
WASTE WATER WORKER NOTE PATIENT ARRIVED FROM ICU BY BED AT 1845. REPORT RECEIVED FROM SHERITA SHAH. PATIENT IN BED RESTING COMFORTABLY. PATIENT IN NO ACUTE DISTRESS. NO SOB NOTED. PATIENT BREATHING IS EVEN AND UNLABORED. PATIENT ON CARDIAC MONITORING READING SINUS RHYTHM HR 94. PATIENT BED IS LOCKED AND IN LOWEST POSITION. VITAL SIGNS WNL. CALL LIGHT WITHIN REACH. WILL ENDORSE CARE TO PM SHIFT FOR MAR.
--- NOTE | 2019-11-29 19:30 | NUR ---
SCREW MACHINE HAND RECEIVE PT IN BED A/O X 1-2 LITHUANIAN CONFUSED, NALDO RESTRAINT ON WITH NO S/S OF IMPAIRED CIRCULATION,. NOT IN DISTRESS, SAFETY MEASURES AT ALL TIMES. WILL CONT TO MONITOR
[2019-11-29] MEDS: HYDROCODONE/APAP 5/325MG TABLET PO PRN (21:10)
--- NOTE | 2019-11-29 21:30 | NUR ---
SPOKE TO DR. ORTEGA IF WE COULD LOOK AT RIGHT LOWER EXTREMITY FOOT AND OPEN THE DRESSING PER DR. ORTEGA "OKAY TO TAKE A LOOK AT IT AND RE DRESS FOOT" NOTED AND CARRIED OUT
[2019-11-30] VITALS: BP 126/79
[2019-11-30] MEDS: IV NS 0.9% 1,000 ML IV PRN ×3 (03:29→22:53)
[2019-11-30 04:00] VITALS: BP 129/75
--- NOTE | 2019-11-30 05:50 | NUR ---
DISCONTINUE AND RELEASE BILATERAL SOFT WRIST RESTRAINT PT CALM AT THIS TIME NO REMOVING OF TUBE AND RESTLESSNESS WILL CONT TO MONITOR BEHAVIOR
--- NOTE | 2019-11-30 06:08 | NUR ---
LIQUID COMPOUNDER NO SIGNIFICANT CHANGES, MONITORED ACCORDINGLY, PT SLEPT WELL 9 HOURS. SR 89 IN TELE MONITOR ON CARDIAC MONITORING, STABLE, KEPT CLEAN, DRY AND COMFORTABLE AT ALL TIMES. AM CARE RENDERED, NEEDS ATTENDED AND ANTICIPATED, SAFETY MEASURES AT ALL TIMES. WILL ENDORSE TO NEXT SHIFT.
[2019-11-30] MEDS: INSULIN REGULAR, HUMAN 100 UNIT/ML 3 ML VIAL SQ PRN ×2 (06:23→21:04)
[2019-11-30] MEDS: BLOOD SUGAR DIAGNOSTIC 1 EACH STRIP VI SCH ×4 (06:23→21:04)
--- NOTE | 2019-11-30 07:15 | NUR ---
MS RN NOTES PATIENT IN BED ALERT ORIENTED X 1-2. NO ACUTE DISTRESS NOTED. BREATHING UNLABORED. NO SOB NOTED. DENIED PAIN AT THIS TIME. IV ACCESS PATENT AND INTACT, NO REDNESS, NO BLEEDING NOTED. SAFETY MEASURES IN PLACE, CALL LIGHT WITHIN REACH. WILL CONTINUE TO MONITOR ACCORDINGLY.
[2019-11-30] MEDS: LEVOTHYROXINE SODIUM 88 MCG TABLET PO SCH (07:42)
--- NOTE | 2019-11-30 07:46 | NUR ---
RN HOME HEALTH SPOKE TO DR BOSWELL TO CLARIFY WOUND TREATMENT ORDERS FOR THE RIGHT FOOT WOUNDS. ORDERS CLARIFIED, VAC THERAPY TO RESUME AT FACILITY WHERE PATIENT CAME FROM ONCE DISCHARGED. DAILY DRESSING CHANGES TO BE DONE WHILE PATIENT IN HOUSE HERE AT [facility]. VAC THERAPY DC'D HERE IN HOUSE AT THIS TIME.
--- NOTE | 2019-11-30 07:48 | NUR ---
WOUND CARE CONSULT: REVIEWED CHART, NURSING DOCUMENTATION AND PHOTOS WHICH INDICATE RASH TO PERINEUM AND INNER THIGHS, SACRAL SCARRING, RT FOOT OPEN WOUND AND DISCOLORED AREA TO RT DORSAL FOOT, PRESENT ON ADMISSION.PT PRESENTS WITH DRY INTACT DRESSING TO RT LOWER LEG AND FOOT, SACRAL SCARRING, RASH TO PERINEUM AND INNER THIGHS, PRESENT ON ADMISSION. RECOMMENDATIONS MADE FOR WOUND CARE AND SKIN PROTECTION. DISCUSSED WITH NURSING STAFF. ORDERS RECEIVED FROM DR BOSWELL FOR LOCAL WOUND CARE OF RT FOOT BY HOT MILL TIN ROLLER AND DISCUSSED WITH NURSING STAFF. [facility] IN AGREEMENT WITH PLAN OF CARE. Addendum: 11/30/19 at 0752 by MATHEW APARICIO WNDNU Amended: Links added.
[2019-11-30 08:00] VITALS: BP 113/60
[2019-11-30] MEDS: VANCOMYCIN 0.75 GM in IV D5W 250 ML IV SCH (09:00)
[2019-11-30 09:16] LABS: BASOPHILS % (AUTO) 0.5 % (0.0-2.0); HEMATOCRIT 30 % (39-51); HEMOGLOBIN 9.3 g/dL (13.5-17.5); LYMPHOCYTES # (AUTO) 1.9 /CMM (0.8-4.8); LYMPHOCYTES % (AUTO) 32.4 % (20.0-44.0); MEAN CORPUSCULAR HGB CONC 31 g/dl (31.0-36.0); MEAN CORPUSCULAR VOLUME 78 fL (80-96); MONOCYTES # (AUTO) 0.4 /CMM (0.1-1.30); MONOCYTES % (AUTO) 6.9 % (2.0-12.0); NEUTROPHILS # (AUTO) 3.1 /CMM (1.8-8.9); NEUTROPHILS % (AUTO) 53.2 % (43.0-81.0); PLATELET COUNT (AUTO) 230 /CMM (150-450); RED BLOOD CELL COUNT(AUTO) 3.82 MIL/uL (4.5-6.0); WHITE BLOOD COUNT (AUTO) 5.9 K/uL (4.3-11.0)
[2019-11-30 09:23] LABS: CALCIUM, SERUM 8.2 mg/dL (8.5-10.1); CREATININE 1.1 mg/dL (0.6-1.3); MAGNESIUM 1.9 mg/dL (1.8-2.4); PHOSPHORUS 2.7 mg/dL (2.5-4.9); POTASSIUM 4.2 mmol/L (3.5-5.1)
--- NOTE | 2019-11-30 09:30 | NUR ---
DOCUMENT MANAGEMENT SPECIALIST NOTES VANCOMYCIN TROUGH RESULTED 28, NOTIFIED PHARMACIST VEGA MADE AWARE, VANCOMYCIN IV HELD.
[2019-11-30] MEDS: CLOTRIMAZOLE 1% 15 GM TUBE TP SCH ×2 (09:52→17:07)
--- NOTE | 2019-11-30 12:51 | NUR ---
MOLECULAR PHYSICIST NOTES PATIENT SEEN AND EVALUATED BY DR FANG.
[2019-11-30] MEDS: LOSARTAN POTASSIUM 50 MG TABLET PO SCH (13:09)
[2019-11-30 13:31] VITALS: BP 114/76
[2019-11-30] MEDS: SOD FERRIC GLUC 125 MG in IV NS 0.9% 100 ML IV SCH (14:25)
[2019-11-30 14:27] LABS: *SPE A/G RATIO 0.7 (0.7-1.7); *SPE ALBUMIN 2.3 g/dL (2.9-4.4); *SPE ALPHA-1-GLOBULIN 0.2 g/dL (0.0-0.4); *SPE ALPHA-2-GLOBULIN 0.7 g/dL (0.4-1.0); *SPE BETA GLOBULIN 0.9 g/dL (0.7-1.3); *SPE GLOBULIN, TOTAL 3.5 g/dL (2.2-3.9); *SPE M-SPIKE 0.3 g/dL (Not Observed); *SPEGAMMA GLOBULIN 1.7 g/dL (0.4-1.8)
--- NOTE | 2019-11-30 15:00 | NUR ---
MS RN NOTES PATIENT SEEN AND EVALUATED BY DR CID , WOUND CARE DONE AT BEDSIDE. PATIENT TOLERATED WELL
[2019-11-30 16:12] VITALS: BP 130/65
--- NOTE | 2019-11-30 16:45 | NUR ---
MS RN NOTES PATIENT TRANSPORTED TO [facility] ROOM 310-1. PATIENT ALERT ORIENTED X 2. NO ACUTE DISTRESS NOTED. BREATHING UNLABORED. NO SOB NOTED. DENIED PAIN AT THIS TIME. IV ACCESS PATENT AND INTACT, NO REDNESS, NO BLEEDING NOTED. SAFETY MEASURES IN PLACE. BELONGINGS AND MEDICATIONS TAKEN WITH THE PATIENT. REPORT GIVEN TO ASPEN SHAH.
[2019-11-30] MEDS: RIVAROXABAN 10 MG TABLET PO SCH (17:13)
--- NOTE | 2019-11-30 17:20 | NUR ---
MS RN NOTES RECEIVED PATIENT FROM 2ND FLOOR. PATIENT SITUATED IN BED. SAFETY MEASURES. CALL LIGHT WITHIN REACH. PATIENT WITH PICC LINE INTACT PATENT. WILL CONTINUE TO MONITOR.
[2019-11-30] MEDS: HYDROCODONE/APAP 5/325MG TABLET PO PRN (17:27)
--- NOTE | 2019-11-30 19:00 | NUR ---
MS RN OPENING NOTES: RECEIVED PATIENT IN BED, AWAKE, A/O X2,WITH PERIODS OF FORGETFULNESS. NO S/S DISTRESS NOTED. STILL COMPLAINING OF THE BACK OF THE LEFT EAR. CALL LIGHT WITHIN REACH. BED ALARM ON. BED IN LOWEST AND LOCKED POSITION. HOB ELEVATED. WITH O2 AT 2L/MIN. WITH LEFT BKA. WITH RIGHT FOOT DRESSING CLEAN,DRY AND INTACT.
--- NOTE | 2019-11-30 19:20 | NUR ---
MS RN NOTES PATIENT IN BED RESTING NO SOB OR ACUTE DISTRESS NOTED. ALL DUE MEDICATIONS ADMINISTERED. ALL NEEDS MET. ENDORSED CARE TO PM SHIFT.
[2019-11-30 20:00] VITALS: BP 118/75
[2019-11-30] MEDS ORDERED: VANCOMYCIN 0.75 GM in IV D5W 250 ML IV SCH (21:00)
--- NOTE | 2019-12-01 05:36 | NUR ---
MS RN CLOSING NOTES: PATIENT IN BED, AWAKE, A/O X2-3 WITH PERIODS OF FORGETFULNESS. NO S/S DISTRESS NOTED. NO COMPLAIN OF PAIN. HOB ELEVATED AT 30 DEGREES. CALL LIGHT WITHIN REACH. BED ALARM ON. BED IN LOWEST AND LOCKED POSITION.RIGHT FOOT DRESSING CLEAN,DRY AND INTACT, OFFLOADED. CHANGED POSITION. RASHES TO PERINEUM AND INNER THIGHS- CLEANSED WITH SOAP AND WATER RINSED AND DRIED WELL AND LOTRIMIN CREAM APPLIED FOLLOWED WITH ZGUARD. SACRAL SCAR PROTECTED WITH MEPILEX DRESSING. OFFLOADED. WITH RIGHT ARM TRIPLE LUMEN DRESSING CLEAN,DRY AND INTACT, FLUSHED WITH 10ML NS, WITH GOOD BRISK BLOOD RETURN.
[2019-12-01 06:50] LABS: BASOPHILS % (AUTO) 0.8 % (0.0-2.0); HEMATOCRIT 28 % (39-51); HEMOGLOBIN 8.7 g/dL (13.5-17.5); LYMPHOCYTES # (AUTO) 1.6 /CMM (0.8-4.8); LYMPHOCYTES % (AUTO) 31.5 % (20.0-44.0); MEAN CORPUSCULAR HGB CONC 31 g/dl (31.0-36.0); MEAN CORPUSCULAR VOLUME 78 fL (80-96); MONOCYTES # (AUTO) 0.4 /CMM (0.1-1.30); MONOCYTES % (AUTO) 7.4 % (2.0-12.0); NEUTROPHILS # (AUTO) 2.6 /CMM (1.8-8.9); NEUTROPHILS % (AUTO) 50.3 % (43.0-81.0); PLATELET COUNT (AUTO) 229 /CMM (150-450); WHITE BLOOD COUNT (AUTO) 5.2 K/uL (4.3-11.0)
[2019-12-01] MEDS: BLOOD SUGAR DIAGNOSTIC 1 EACH STRIP VI SCH ×2 (06:51→12:09)
--- NOTE | 2019-12-01 06:51 | NUR ---
BLOOD SUGAR CHECKED=73, NO INSULIN GIVEN.
[2019-12-01] MEDS: IV NS 0.9% 1,000 ML IV PRN (07:02)
--- NOTE | 2019-12-01 07:30 | NUR ---
RN Opening note Received patient AO x 1-2, confuse, able to responds all stimuli. Patient does no appears pain or discomfort, skin is warm to touch, keep clean/dry, intact piccline site running NS at 125ml/hr. Respiratory even and unlabored with oxygen at 2LPM, o2sat 98%. Kept bed in locked with elevated HOB for ensure air and aspiration precaution. Call light within reach, will continue to monitor.
[2019-12-01 08:00] VITALS: BP 128/76
[2019-12-01] MEDS: LEVOTHYROXINE SODIUM 88 MCG TABLET PO SCH (08:26)
[2019-12-01 08:37] LABS: CALCIUM, SERUM 8.2 mg/dL (8.5-10.1); CREATININE 0.9 mg/dL (0.6-1.3); MAGNESIUM 1.7 mg/dL (1.8-2.4); PHOSPHORUS 2.8 mg/dL (2.5-4.9); POTASSIUM 4.2 mmol/L (3.5-5.1)
[2019-12-01 09:34] VITALS: BP 139/62
[2019-12-01] MEDS: LOSARTAN POTASSIUM 50 MG TABLET PO SCH (09:34)
[2019-12-01] MEDS: Magnesium 1GM/D5W 100ML PREMIX 100 ML IV SCH ×2 (09:35→10:46)
[2019-12-01] MEDS: CLOTRIMAZOLE 1% 15 GM TUBE TP SCH (09:36)
[2019-12-01] MEDS: SOD FERRIC GLUC 125 MG in IV NS 0.9% 100 ML IV SCH (14:41)
--- NOTE | 2019-12-01 16:44 | NUR ---
Patient discharge to [facility] room 105-1, Dary SHAH given report. Pt has wounds picture taken.
--- NOTE | 2019-12-01 17:23 | NUR ---
2 wool fleece grader picked up patient, given report, in stable condition, bp; 128/71.
== END 2019-12-01 17:00 | DRG 602 ==
LOC: ER 15:40 → ICU 19:40 → TELE2 11-29 18:31 → MEDSG2 11-30 15:30 → MED 11-30 17:01
PROVIDERS: ADMIT Nurse Practitioner Acute Care; ATTEND Student in an Organized Health Care Education/Training Program
PROC: 02HV33Z Insertion of Infusion Device into Superior Vena Cava, Percutaneous Approach (ICD-10-PCS; principal; 2019-11-28)
PROC: B548ZZA Ultrasonography of Superior Vena Cava, Guidance (ICD-10-PCS; 2019-11-28)
DX: L03.115 Cellulitis of right lower limb (principal); N17.0 Acute kidney failure with tubular necrosis; G93.41 Metabolic encephalopathy; R57.1 Hypovolemic shock; E44.0 Moderate protein-calorie malnutrition; M86.8X7 Other osteomyelitis, ankle and foot; D63.8 Anemia in other chronic diseases classified elsewhere; E03.9 Hypothyroidism, unspecified; E11.22 Type 2 diabetes mellitus with diabetic chronic kidney disease; E88.09 Other disorders of plasma-protein metabolism, not elsewhere classified; E11.40 Type 2 diabetes mellitus with diabetic neuropathy, unspecified; E11.621 Type 2 diabetes mellitus with foot ulcer; F02.80 Dementia in other diseases classified elsewhere, unspecified severity, without behavioral disturbance, psychotic disturbance, mood disturbance, and anxiety; H54.8 Legal blindness, as defined in USA; G31.83 Neurocognitive disorder with Lewy bodies; I12.9 Hypertensive chronic kidney disease with stage 1 through stage 4 chronic kidney disease, or unspecified chronic kidney disease; I25.10 Atherosclerotic heart disease of native coronary artery without angina pectoris; E11.69 Type 2 diabetes mellitus with other specified complication; Z79.4 Long term (current) use of insulin; E11.65 Type 2 diabetes mellitus with hyperglycemia; N18.9 Chronic kidney disease, unspecified; Z79.01 Long term (current) use of anticoagulants; Z86.73 Personal history of transient ischemic attack (TIA), and cerebral infarction without residual deficits; Z89.512 Acquired absence of left leg below knee; I95.9 Hypotension, unspecified; E11.51 Type 2 diabetes mellitus with diabetic peripheral angiopathy without gangrene; R40.2362 Coma scale, best motor response, obeys commands, at arrival to emergency department; R40.2132 Coma scale, eyes open, to sound, at arrival to emergency department; R40.2252 Coma scale, best verbal response, oriented, at arrival to emergency department; L97.519 Non-pressure chronic ulcer of other part of right foot with unspecified severity; F09 Unspecified mental disorder due to known physiological condition
CPT/HCPCS: 36415; 70450-TC; 71045-TC; 80048-TC; 80053-TC; 80061-TC; 80076-TC; 80202-TC; 81000-TC; 82962-TC; 83540-TC; 83605-TC; 83735-TC; 84100-TC; 84155; 84165; 84439-TC; 84443-TC; 84484-TC; 85025-TC; 85730-TC; 86850-TC; 87040-TC; 87081-TC; 87086-TC; 93307-TC; A4349; A6253; C1751; C9803-CS; G0378; J1815; J2185; J2916; J3370; J3475; J7030; J7050; J7060; U0003-CS

== ENCOUNTER 2019-12-12 13:40 | Outpatient (CLI) | payer MEDICARE, OTHER ==
[~2019-12-12 13:40] MED LIST changes: +AMIN30LI27 PO; -CALC355O18 PO; +CHOL100040 PO; -FAMO40TA7 PO; +INSU100V10 SQ; -INSU100V7 SQ; -LEVO100T9 PO; +LEVO88TA5 PO; +MULT-447 PO; +PANT40TA49 PO; -ZINC220T4 PO
[2019-12-12] MEDS ORDERED: LIDOCAINE SOLN 4% 50 ML BOTTLE ONE (13:54)
== END 2019-12-12 23:59 | disposition home or self-care (01) ==
LOC: WOU 13:40
PROVIDERS: ATTEND Podiatrist Foot & Ankle Surgery
DX: I95.9 Hypotension, unspecified (principal); E11.42 Type 2 diabetes mellitus with diabetic polyneuropathy; E11.51 Type 2 diabetes mellitus with diabetic peripheral angiopathy without gangrene; E11.69 Type 2 diabetes mellitus with other specified complication; M86.671 Other chronic osteomyelitis, right ankle and foot; Z79.4 Long term (current) use of insulin; Z89.512 Acquired absence of left leg below knee; Z99.3 Dependence on wheelchair
CPT/HCPCS: 82962; G0463

== ENCOUNTER 2019-12-12 14:21 | Inpatient (IN) | payer MEDICARE, OTHER ==
[~2019-12-12] VITALS: Ht 162.6 cm; Wt 65.8 kg
[2019-12-12] MEDS ORDERED: MIDODRINE HCL (5MG) 5 MG TABLET PO STA (14:40)
[2019-12-12 14:54] LABS: BASOPHILS % (AUTO) 0.7 % (0.0-2.0); EOSINOPHILS % (AUTO) 5.6 % (0.0-6.0); HEMATOCRIT 29 % (39-51); HEMOGLOBIN 9.2 g/dL (13.5-17.5); LYMPHOCYTES # (AUTO) 1.8 /CMM (0.8-4.8); LYMPHOCYTES % (AUTO) 31.9 % (20.0-44.0); MEAN CORPUSCULAR HGB CONC 32 g/dl (31.0-36.0); MEAN CORPUSCULAR VOLUME 79 fL (80-96); MONOCYTES # (AUTO) 0.4 /CMM (0.1-1.30); MONOCYTES % (AUTO) 6.8 % (2.0-12.0); NEUTROPHILS # (AUTO) 3.1 /CMM (1.8-8.9); PLATELET COUNT (AUTO) 301 /CMM (150-450); RED BLOOD CELL COUNT(AUTO) 3.71 MIL/uL (4.5-6.0); WHITE BLOOD COUNT (AUTO) 5.7 K/uL (4.3-11.0)
[2019-12-12] MEDS ORDERED: NS 0.9% IV ONE (15:00)
--- NOTE | 2019-12-12 15:04 | NUR ---
PATIENT CAME FROM WOUND CARE CENTER AND WAS NOTED TO BE HYPOTENSIVE, PATIENT IS ALERT AND ORIENTED, VERBALLY RESPONSIVE, NO DISTRESS NOTED, DENIES PAIN AT THIS TIME. PATIENT ASSISTED TO BED, AND ATTACHED TO THE RESEARCH DAIRY FARM SUPERVISOR.
--- NOTE | 2019-12-12 15:15 | NUR ---
PATIENT REFUSED STRAIGHT CATHETER, URINAL PROVIDED. EXPLAINED RISKS AND BENEFITS. STILL REFUSED.
[2019-12-12 15:19] LABS: ALANINE AMINOTRANSFERASE 7 U/L (12-78); ALBUMIN 2.6 g/dL (3.4-5.0); ALKALINE PHOSPHATASE 85 U/L (46-116); ASPARTATE AMINOTRANSFERASE 22 U/L (15-37); BILIRUBIN,DIRECT 0.1 mg/dL (0.0-0.2); BILIRUBIN,TOTAL 0.2 mg/dL (0.2-1.0); CALCIUM, SERUM 8.4 mg/dL (8.5-10.1); CARBON DIOXIDE 26 mmol/L (21-32); CHLORIDE 101 mmol/L (98-107); CREATININE 1.7 mg/dL (0.6-1.3); GLUCOSE 181 mg/dL (74-106); POTASSIUM 3.8 mmol/L (3.5-5.1); SODIUM SERUM 135 mmol/L (136-145); TOTAL PROTEIN, SERUM 7.6 g/dL (6.4-8.2); UREA NITROGEN, BLOOD 33 mg/dL (7-18)
--- NOTE | 2019-12-12 16:05 | NUR ---
PATIENT RESTING, BLOOD PRESSURE IMPROVED. NO DISTRESS NOTED. NO CHANGE IN LOC.
--- NOTE | 2019-12-12 16:25 | NUR ---
COVID SWAB SENT
--- NOTE | 2019-12-12 17:04 | NUR ---
REPORT GIVEN TO JOSE A SHAH.
--- NOTE | 2019-12-12 18:00 | NUR ---
PATIENT AA/OX4, BREATHING EVEN AND UNLABORED, NO SOB NOTED, NEEDS ATTENDED. TRANSFERRED TO ROOM 101 VIA ACLS PROTOCOL. ENDORSED TO JOSE A SHAH.
--- NOTE | 2019-12-12 18:10 | NUR ---
ms rn received a new admission from er, 69 year old male,alert,oriented x3,came in w/ dx of hypotension,denies pain at this time. noted to have a right foot wound vac, intact,left bka,all needs attended.
[2019-12-12] MEDS ORDERED: ONDANSETRON HCL/PF 4 MG/2 ML VIAL IVP PRN (18:30)
[2019-12-12] MEDS ORDERED: MAGNESIUM HYDROXIDE 30 ML UDC PO PRN (18:30)
[2019-12-12] MEDS ORDERED: ACETAMINOPHEN 325 MG TABLET PO PRN (18:30)
[2019-12-12] MEDS ORDERED: MAG HYDROX/AL HYDROX/SIMETH 30 ML UDC PO PRN (18:30)
[2019-12-12] MEDS ORDERED: DEXTROSE 50%-WATER 50 ML DISP.SYRIN IV PRN (18:30)
[2019-12-12] MEDS ORDERED: Z GUARD REMEDY 2 OZ OINT TP PRN (18:30)
--- NOTE | 2019-12-12 18:50 | NUR ---
ms rn on bed,no distress, will endorsed to maintenance technician 2nd shift for jamee.
--- NOTE | 2019-12-12 19:35 | NUR ---
COMMUNITY HEALTH NURSE STAFF: ADMISSION 69 years old male, awake. A/o X1 to self only. Oriented to room, unit, staff. Skin assessment done with SHADY Beth. Right heel with wound vac to suction, denies pain. Patient is blind. Fall; skin precaution maintained.
[2019-12-12 20:00] VITALS: BP 117/67
[2019-12-12 20:30] VITALS: BP 117/67
[2019-12-12] MEDS: IV NS 0.9% 1,000 ML IV PRN (20:44)
[2019-12-12] MEDS: BLOOD SUGAR DIAGNOSTIC 1 EACH STRIP VI SCH (21:41)
[2019-12-12] MEDS: *INSULIN REGULAR(HUMULIN R)HUM 100 UNIT/ML VIAL SQ PRN (21:43)
[2019-12-13 00:14] VITALS: BP 121/55
[2019-12-13] MEDS: INSULIN REGULAR, HUMAN 100 UNIT/ML 3 ML VIAL SQ PRN ×2 (06:07→23:06)
[2019-12-13] MEDS: BLOOD SUGAR DIAGNOSTIC 1 EACH STRIP VI SCH ×4 (06:07→23:05)
--- NOTE | 2019-12-13 07:11 | NUR ---
PRINTING GRAY CLOTH TENDER PATIENT WAS ADMITTED WITH HOME PORTABLE VAC UNIT AND THE CIVIL ENGINEER WAS NOT ATTACHED TO THE VAC UNIT PRIOR TO COMING INTO CLINIC. PATIENT HAS BEEN ADMITTED TO ACUTE CARE. PER NURSING THE PORTABLE VAC UNIT HAS TURNED OFF AND NO LONGER HAS A CHARGE. I SPOKE TO DR BOSWELL, PATIENT'S CONSULTING GROUP ANALYST, AND RECEIVED ORDERS TO REMOVE THE VAC DRESSING AND ORDERS RECEIVED FOR DAILY LOCAL CARE. ALL DISCUSSED WITH NURSING. DR BOSWELL WILL COME AND SEE THE PATIENT TODAY.
[2019-12-13 07:13] LABS: APPEARANCE,URINE CLEAR (CLEAR); BILIRUBIN,URINE NEGATIVE (NEGATIVE); BLOOD, URINE TRACE-INTA Ery/uL (NEGATIVE); COLOR,URINE YELLOW (YELLOW); KETONES,URINE NEGATIVE (NEGATIVE); LEUKOCYTE ESTERASE ,URINE NEGATIVE (NEGATIVE); NITRITE, URINE NEGATIVE (NEGATIVE); PROTEIN,URINE NEGATIVE (NEGATIVE); UGLUCOSE NEGATIVE (NEGATIVE); UROBILINOGEN,URINE 0.2 EU/dL (0.2)
--- NOTE | 2019-12-13 07:15 | NUR ---
PREMIUM SERVICE REPRESENTATIVE: END [facility] SHIFT REPORT Patient in bed, awake, A/O x1 to self only with confusion. Sinus rhythm in the Tele monitor. Right heel diabetic wound, Podiatry to follow. Patient pulled out IV, trying to get out from bed, refused/declined education. Notified Dr. Saavedra, awaiting call back. Per Idalia,RN/Wound to removed wound vac and apply dressing to right heel. Will endorse to oncoming RN.
[2019-12-13 07:44] LABS: BACTERIA,URINE Rare /HPF (None Seen); SQUAMOUS EPITHELIAL CELL,UR Rare /HPF (None Seen); WBC,URINE 0-2 /HPF (0-3)
--- NOTE | 2019-12-13 07:45 | NUR ---
MS RN: WOUND VAC New orders for Right heel wound. Wound vac dressing removed, right heel cleanse with NS then wet to dry dressing applied. Personal portable wound vac kept in patient personal belongings. Patient still uncooperative, attempted to get out from bed, unable to insert IV, pulled out leads for Tele monitor. PABLO Borrero to follow up with .
--- NOTE | 2019-12-13 07:46 | NUR ---
RN OPENING NOTES RECEIVED PATIENT IN BED RESTING. A/OX2, CONFUSED. NOT IN ANY FORM OF DISTRESS. NO SOB. DENIED PAIN OR DISCOMFORT AT THIS TIME. NO IV ACCESS NOTED. NOTED PATIENT WITH LEFT BKA. KEPT PATIENT SAFE AND COMFORTBALE. BED IN LOW/LOCKED PSOTIION. SIDERAILS UPX2,CALL LIGHT IN REACH. WILL MONITOR ACCORDINGLY.
[2019-12-13 08:00] VITALS: BP 120/57
[2019-12-13 10:20] LABS: BASOPHILS % (AUTO) 0.5 % (0.0-2.0); EOSINOPHILS % (AUTO) 2.8 % (0.0-6.0); HEMATOCRIT 29 % (39-51); HEMOGLOBIN 9.3 g/dL (13.5-17.5); LYMPHOCYTES % (AUTO) 38.9 % (20.0-44.0); MEAN CORPUSCULAR HGB CONC 32 g/dl (31.0-36.0); MEAN CORPUSCULAR VOLUME 78 fL (80-96); MONOCYTES # (AUTO) 0.5 /CMM (0.1-1.30); MONOCYTES % (AUTO) 6.9 % (2.0-12.0); NEUTROPHILS # (AUTO) 3.9 /CMM (1.8-8.9); NEUTROPHILS % (AUTO) 50.9 % (43.0-81.0); PLATELET COUNT (AUTO) 292 /CMM (150-450); RED BLOOD CELL COUNT(AUTO) 3.77 MIL/uL (4.5-6.0); WHITE BLOOD COUNT (AUTO) 7.7 K/uL (4.3-11.0)
[2019-12-13 10:40] LABS: CALCIUM, SERUM 8.4 mg/dL (8.5-10.1); CREATININE 1.2 mg/dL (0.6-1.3); MAGNESIUM 1.7 mg/dL (1.8-2.4); PHOSPHORUS 2.5 mg/dL (2.5-4.9); POTASSIUM 3.7 mmol/L (3.5-5.1)
[2019-12-13] MEDS ORDERED: Magnesium 1GM/D5W 100ML PREMIX 100 ML IV SCH (11:30)
--- NOTE | 2019-12-13 11:30 | NUR ---
RN NOTES PATIENT KEPT REMOVING AND BITTING TELEMONITOR WIRE 2X ALREADY. ALSO PULLED OUT IV ACCESS. INFORMED DR ORTEGA AND PER MD BOLIVAR TO RESTRAINT THE PATIENT.
--- NOTE | 2019-12-13 11:35 | NUR ---
RN NOTES BILATERAL SOFT WRIST RESTRAINTS PLACED ON PATIENT DUE TO PULLING IV ACCESS AND BITTING WIRES OF TELEMONITOR BOX. CIRCULATIONS CHECKED, NO COMPLICATIONS.
--- NOTE | 2019-12-13 11:48 | NUR ---
veena keeps removing telemonitor box. refused iv insertion. will notify
--- NOTE | 2019-12-13 12:35 | NUR ---
RN NOTES MAGNESIUM IV NON ADMIN, NO IV ACCESS. CHANGED TO PO
[2019-12-13] MEDS ORDERED: MAGNESIUM OXIDE 400 MG TABLET PO ONE (14:00)
[2019-12-13 16:00] VITALS: BP 126/74
--- NOTE | 2019-12-13 19:27 | NUR ---
RN CLOSING NOTES PATIENT IN STABLE CONDITION. ALL NEEDS ATTENDED AND PROVIDED. NALDO SOFT WRIST RESTRAINTS ON, CIRCULATIONS CHECKED, NO COMPLICATIONS. FOR WOUND DEBRIDEMENT TOMORROW. CONSENT ENDORSED TO PABLO FOOTE. KEPT PATIENT SAFE AND COMFORTABLE. BED IN LOW/LOCKED POSITION, SIDERIAL UPX2,CALL LIGHT IN REACH. ENDORSED TO PABLO FOOTE FOR MAR.
--- NOTE | 2019-12-13 19:30 | NUR ---
telephone engineer opening note received patient in bed. a/ox2, per report patient is demented and confused. tolerating room air. respirations are even and unlabored. no s/s sob noted. no c/o pain at this time. external tele monitor reads sinus rhythm hr 78. in no apparent distress. patient has no iv access at this time. bilateral soft wrist restraints present, no redness noted. bed is low and locked, hob elevated in semi fowlers, side rials upx3. call light within reach. will continue to monitor.
[2019-12-13 20:00] VITALS: BP 131/60
--- NOTE | 2019-12-13 20:27 | NUR ---
telecasting engineer note obtained verbal consent via telephone from jam gonzalez for right foot debridement. secondary witness by Edgard SHAH. will continue to monitor.
--- NOTE | 2019-12-13 20:39 | NUR ---
RICE DRYER MECHANIC NOTE ADMINISTERED PRN TYLENOL 650MG FOR SLIGHT TEMP 99.1. WILL CONTINUE TO MONITOR.
--- NOTE | 2019-12-13 20:53 | NUR ---
telephone operators supervisor note called cone winder MD Dr. Quentin ramsey to inform him patient is negative covid for rapid and PCR test. ok to transfer as tele. order read back noted and carried out. called nursing sup to obtain bed. will clean patient, change linen and bed as protocol. will continue to monitor.
--- NOTE | 2019-12-13 23:13 | NUR ---
telephone station repairer note informed Dr. Ghotra that med recon needs to be reviewed. will continue to monitor.
--- NOTE | 2019-12-13 23:50 | NUR ---
CULINARY ASSISTANT NOTE - TRANSFER NOTE PATIENT TRANSFERRED FROM ROOM 201 TO ROOM 327-2. TRANSFERRED WITH ALL BELONGINGS, MEDICATION AND CHART. PATIENT REMAINS IN STABLE CONDITION. WILL CONTINUE CARE ON NEW FLOOR.
[2019-12-14] VITALS (7 sets, daily range): BP systolic 106–150; BP diastolic 58–84
[2019-12-14] MEDS: IV NS 0.9% 1,000 ML IV PRN ×2 (06:31→20:57)
[2019-12-14] MEDS: BLOOD SUGAR DIAGNOSTIC 1 EACH STRIP VI SCH ×4 (06:31→21:26)
[2019-12-14 07:20] LABS: BASOPHILS % (AUTO) 0.7 % (0.0-2.0); EOSINOPHILS % (AUTO) 5.4 % (0.0-6.0); HEMATOCRIT 29 % (39-51); HEMOGLOBIN 9.2 g/dL (13.5-17.5); LYMPHOCYTES # (AUTO) 2.5 /CMM (0.8-4.8); LYMPHOCYTES % (AUTO) 46.9 % (20.0-44.0); MEAN CORPUSCULAR HGB CONC 32 g/dl (31.0-36.0); MEAN CORPUSCULAR VOLUME 78 fL (80-96); MONOCYTES # (AUTO) 0.4 /CMM (0.1-1.30); MONOCYTES % (AUTO) 7.7 % (2.0-12.0); NEUTROPHILS # (AUTO) 2.1 /CMM (1.8-8.9); NEUTROPHILS % (AUTO) 39.3 % (43.0-81.0); PLATELET COUNT (AUTO) 267 /CMM (150-450); RED BLOOD CELL COUNT(AUTO) 3.68 MIL/uL (4.5-6.0); WHITE BLOOD COUNT (AUTO) 5.4 K/uL (4.3-11.0)
[2019-12-14 07:39] LABS: CALCIUM, SERUM 8.5 mg/dL (8.5-10.1); CREATININE 1.1 mg/dL (0.6-1.3); MAGNESIUM 1.8 mg/dL (1.8-2.4); PHOSPHORUS 2.4 mg/dL (2.5-4.9); POTASSIUM 3.7 mmol/L (3.5-5.1)
--- NOTE | 2019-12-14 07:39 | NUR ---
telephone switchboard operator closing note patient in bed. a/ox2. remain tolerating room air. no resp distress. no pain noted. external tele monitor reads sinus rhythm. no distress. iv access in left hand #18 Running ns@75ml/hr. bilateral soft wrist restraints maintained, no redness noted. bed remains low and locked, hob elevated in semi fowlers, side rials upx3. call light within reach. will endorse to next shift.
--- NOTE | 2019-12-14 07:41 | NUR ---
RIPENING ROOM OPERATOR OPENING NOTES BEDSIDE ENDORSEMENT DONE. PATIENT IS IN BED AWAKE AND VERBALLY RESPONSIVE. NOT IN ACUTE DISTRESS. AXO X1-2, TAMAZIGHT-SPEAKING, BUT UNDERSTANDS SOME JAPANESE. BREATHING EVEN AND UNLABORED, TOLERATING ROOM AIR. ON TELE MONITORING SR W/ HR IN 70-75, NO CARDIAC DISTRESS NOTED. IV SITE ON R HAND INTACT AND PATENT. LEFT BKA. WITH R HEEL WOUND PER PREVIOUS SHIFT RN REPORT, DRESSING C/D/I, SCHEDULED FOR WOUND DEBRIDEMENT TODAY. NO CHEM PROPHYLAXIS FOR VTE, WILL F/U W/ ADVISORY INTERNSHIP AFTER DEBRIDEMENT PROCEDURE. SAFETY PRECAUTIONS IN PLACE: BED IN LOWEST AND LOCKED POSITION, SR UP X2, CALL LIGHT PLACED W/IN REACH. WILL CONTINUE TO MONITOR.
[2019-12-14] MEDS: LOSARTAN POTASSIUM 50 MG TABLET PO SCH (09:40)
--- NOTE | 2019-12-14 10:03 | NUR ---
WOUND CARE CONSULT: PT PRESENTS WITH DRESSING TO RT LOWER LEG AND FOOT. PT NOTED WITH INCONTINENCE ASSOCIATED SKIN DAMAGE TO GLUTEAL CREASE AND RASH TO BUTTOCKS, INNER THIGHS AND PERINEUM, PRESENT ON ADMISSION. RECOMMENDATIONS MADE FOR SKIN PROTECTION. DISCUSSED WITH NURSING STAFF. DEFER TO DPM CURRENTLY ON CASE FOR LOWER EXTREMITY. LEFT BELOW KNEE AMPUTATION STUMP NOTED. PT IS ON MAYRA ISOFLEX LOW AIRLOSS BED. PT NOTED TO BE INCONTINENT OF URINE AND STOOL. WILL SEE PRN. IN AGREEMENT WITH PLAN OF CARE. CURRENT TARA SCORE IS 14. Addendum: 12/14/19 at 1006 by MATHEW APARICIO WNDNU Amended: Links added.
--- NOTE | 2019-12-14 10:10 | NUR ---
RN NOTES PATIENT WAS SEEN AND EVALUATED BY WOUND NURSEMATHEW, ORDERS MADE AND WILL CARRY OUT ORDERS. WILL CONTINUE TO MONITOR.
[2019-12-14] MEDS: INSULIN REGULAR, HUMAN 100 UNIT/ML 3 ML VIAL SQ PRN ×2 (11:36→17:26)
[2019-12-14] MEDS: GABAPENTIN 100 MG CAPSULE PO SCH ×2 (12:09→16:23)
[2019-12-14] MEDS: CARBIDOPA/LEVODOPA 25/100 MG 1 UDTAB PO SCH ×3 (12:09→21:24)
--- NOTE | 2019-12-14 14:25 | NUR ---
RN NOTES RECEIVED CALL FROM PHYLICIA PONCE, AND INFORMED THAT PT IS POSITIVE FOR MRSA NARES. DR. ORTEGA MADE AWARE.
--- NOTE | 2019-12-14 15:16 | NUR ---
RN NOTES RECEIVED ORDER FROM DR. ORTEGA TO START BACTROBAN OINTMENT BID FOR MRSA OF NARES. WILL CONTINUE TO MONITOR.
[2019-12-14] MEDS: MEMANTINE HCL 5 MG TABLET PO SCH (16:23)
[2019-12-14] MEDS: CLOTRIMAZOLE 1% 15 GM TUBE TP SCH (16:44)
--- NOTE | 2019-12-14 18:46 | NUR ---
RETORT LOAD EXPEDITER CLOSING NOTES PATIENT IS IN BED AWAKE AND VERBALLY RESPONSIVE. NOT IN ACUTE DISTRESS. AXO X1-2, MAORI-SPEAKING, ABLE TO SPEAK AND UNDERSTAND SOME NEPALI AND MAKE NEEDS KNOWN. BREATHING EVEN AND UNLABORED ON ROOM AIR. ON TELE MONITORING SR W/ HR IN 75-80, NO CARDIAC DISTRESS NOTED. IV SITE ON RIGHT WRIST g#22 INTACT AND PATENT. WITH R HEEL WOUND DRESSING C/D/I. BILATERAL SOFT WRIST RESTRAINTS RELEASED AT THIS TIME. SAFETY PRECAUTIONS IN MAINTAINED: BED IN LOWEST AND LOCKED POSITION, SR UP X2, CALL LIGHT PLACED W/IN REACH. WILL ENDORSE TO DEVELOPMENT EDUCATOR RN FOR MAR.
--- NOTE | 2019-12-14 19:50 | NUR ---
PRE SALES TECHNICAL CONSULTANT RECEIVE PT IN BED A/O X 2 NO RESTRAINT PT CALM AT THIS TIME. CONFUSED FREQUENT RE ORIENTATION, STABLE AND NOT IN DISTRESS, SAFETY MEASURES AT ALL TIMES. WILL CONT TO MONITOR
[2019-12-14] MEDS: MUPIROCIN OINT 2% 22 GM TUBE NS SCH (21:04)
[2019-12-14] MEDS: DONEPEZIL 5 MG TABLET PO SCH (21:24)
[2019-12-14] MEDS: MIRTAZAPINE 15 MG TABLET PO SCH (21:25)
[2019-12-14] MEDS: ATORVASTATIN 40 MG TABLET PO SCH (21:25)
[2019-12-14] MEDS: METOPROLOL TARTRATE 25 MG TABLET PO SCH (21:26)
[2019-12-14] MEDS: HYDROCODONE/APAP 5/325MG TABLET PO PRN (21:26)
[2019-12-14] MEDS: *INSULIN REGULAR(HUMULIN R)HUM 100 UNIT/ML VIAL SQ PRN (21:28)
[2019-12-15] VITALS: BP 157/76
[2019-12-15 04:00] VITALS: BP 150/76
--- NOTE | 2019-12-15 06:27 | NUR ---
MS RN MONITORED ACCORDINGLY, CALM AND PT SLEPT WELL, TOLERATING ROOM AIR, ALL NEEDS ATTENDED AND ANTICIPATED, KEPT CLEAN, DRY AND COMFORTABLE. AM CARE RENDERED, ASSISTED REPOSITION EVERY 2 HOURS. GOOD SKIN CARE AT ALL TIMES. SAFETY MEASURES AT ALL TIMES. ENDORSE TO NEXT SHIFT. Addendum: 12/15/19 at 0632 by NAYA ROA RN SR 66'S HR ON CARDIAC MONITORING.
[2019-12-15] MEDS: BLOOD SUGAR DIAGNOSTIC 1 EACH STRIP VI SCH ×4 (06:49→21:54)
[2019-12-15] MEDS: INSULIN REGULAR, HUMAN 100 UNIT/ML 3 ML VIAL SQ PRN ×2 (06:50→12:29)
[2019-12-15 08:00] VITALS: BP 146/80
--- NOTE | 2019-12-15 08:00 | NUR ---
MEN'S GOLF COACH OPENING NOTES PATIENT IS IN BED AWAKE AND VERBALLY RESPONSIVE. NOT IN ACUTE DISTRESS. AXO X1-2, ROMANIAN-SPEAKING, BUT UNDERSTANDS SOME PASHTO. REORIENTATION GIVEN NEEDED. BREATHING EVEN AND UNLABORED, TOLERATING ROOM AIR. ON TELE MONITORING SR W/ HR IN 70-75, NO CARDIAC DISTRESS NOTED. IV SITE ON R WRIST INTACT AND PATENT. LEFT BKA. WITH RT FOOT WOUND DRESSING C/D/I, SCHEDULED FOR WOUND DEBRIDEMENT TODAY. NO CHEM PROPHYLAXIS FOR VTE, WILL F/U W/ WHEEL AND PINION INSPECTOR AFTER DEBRIDEMENT PROCEDURE. SAFETY PRECAUTIONS IN PLACE: BED IN LOWEST AND LOCKED POSITION, SR UP X2, CALL LIGHT PLACED W/IN REACH. WILL CONTINUE TO MONITOR.
[2019-12-15] MEDS: GABAPENTIN 100 MG CAPSULE PO SCH ×3 (08:21→16:15)
[2019-12-15] MEDS: LEVOTHYROXINE SODIUM 88 MCG TABLET PO SCH (08:21)
[2019-12-15] MEDS: MEMANTINE HCL 5 MG TABLET PO SCH ×2 (08:21→16:15)
[2019-12-15] MEDS: PANTOPRAZOLE 40 MG TABLET.DR PO SCH (08:21)
[2019-12-15] MEDS: CARBIDOPA/LEVODOPA 25/100 MG 1 UDTAB PO SCH ×4 (08:21→21:16)
[2019-12-15] MEDS: ISOSORBIDE MONONITRATE (30MG) 30 MG TAB.SR.24H PO SCH (08:33)
[2019-12-15] MEDS: METOPROLOL TARTRATE 25 MG TABLET PO SCH ×2 (08:34→21:18)
[2019-12-15] MEDS: MAGNESIUM OXIDE 400 MG TABLET PO SCH (08:34)
[2019-12-15] MEDS: LOSARTAN POTASSIUM 50 MG TABLET PO SCH (08:34)
[2019-12-15] MEDS: CLOTRIMAZOLE 1% 15 GM TUBE TP SCH ×2 (08:39→16:24)
[2019-12-15] MEDS: MUPIROCIN OINT 2% 22 GM TUBE NS SCH ×2 (08:39→21:53)
[2019-12-15 10:03] LABS: BASOPHILS % (AUTO) 0.8 % (0.0-2.0); EOSINOPHILS % (AUTO) 10.3 % (0.0-6.0); HEMATOCRIT 30 % (39-51); HEMOGLOBIN 9.6 g/dL (13.5-17.5); LYMPHOCYTES # (AUTO) 1.9 /CMM (0.8-4.8); LYMPHOCYTES % (AUTO) 37.7 % (20.0-44.0); MEAN CORPUSCULAR HGB CONC 32 g/dl (31.0-36.0); MEAN CORPUSCULAR VOLUME 79 fL (80-96); MONOCYTES # (AUTO) 0.4 /CMM (0.1-1.30); MONOCYTES % (AUTO) 7.1 % (2.0-12.0); NEUTROPHILS # (AUTO) 2.2 /CMM (1.8-8.9); NEUTROPHILS % (AUTO) 44.1 % (43.0-81.0); PLATELET COUNT (AUTO) 292 /CMM (150-450); RED BLOOD CELL COUNT(AUTO) 3.84 MIL/uL (4.5-6.0)
[2019-12-15 10:10] LABS: CALCIUM, SERUM 8.2 mg/dL (8.5-10.1); POTASSIUM 3.5 mmol/L (3.5-5.1)
[2019-12-15] MEDS: IV NS 0.9% 1,000 ML IV PRN (10:56)
[2019-12-15 16:00] VITALS: BP 100/60
--- NOTE | 2019-12-15 17:16 | NUR ---
PT RESTING COMFORTABLY IN BED BEING FED WITH HIS DINNER.HOB ELEVATED. STILL WAITING FOR DR HEATH FOR PT'S RT FOOT DEBRIDEMENT.WITH CONSENT SIGNED. CALL LIGHT PLACED WITHIN REACH.
--- NOTE | 2019-12-15 19:30 | NUR ---
PT RESTING IN BED COMFORTABLY WITH NO S/S OF PAIN OR DISTRESS.SAFETY MEASURES IN PLACE. WILL CONT TO MONITOR
[2019-12-15 20:00] VITALS: BP 128/60
[2019-12-15] MEDS: MIRTAZAPINE 15 MG TABLET PO SCH (21:16)
[2019-12-15] MEDS: ATORVASTATIN 40 MG TABLET PO SCH (21:16)
[2019-12-15] MEDS: DONEPEZIL 5 MG TABLET PO SCH (21:18)
[2019-12-15] MEDS: HYDROCODONE/APAP 5/325MG TABLET PO PRN (21:19)
[2019-12-15] MEDS: *INSULIN REGULAR(HUMULIN R)HUM 100 UNIT/ML VIAL SQ PRN (21:56)
--- NOTE | 2019-12-16 00:39 | NUR ---
MS RN PT CONFUSED AT THIS TIME CALLING "POLICE AND SPIDER AT HIS ROOM". RE ORIENT PATIENT AND RE ASSURED. SPOKE TO FAMILY TO SPEAK WITH THE PT. WILL CONT TO MONITOR
--- NOTE | 2019-12-16 00:45 | NUR ---
MS RN SPOKE TO FAY HDZ EXPLAINED PT BEHAVIOR AND AWARE. FAY ZENDEJAS APPRECIATIVE TO NURSES
--- NOTE | 2019-12-16 02:08 | NUR ---
MS RN PT AGGRESSIVE RE ORIENT PT. GETTING OUT OF BED, OBTAINED ORDERS FROM DR. ANISA COLE SOFT WRIST RESTRAINT BILATERAL NOTED AND CARRIED OUT
--- NOTE | 2019-12-16 03:01 | NUR ---
MS RN PT SLEEPING AT THIS TIME, WILL CONT TO MONITOR
--- NOTE | 2019-12-16 05:55 | NUR ---
MS RN AFEBRILE, MONITORED ACCORDINGLY. CALM AT THIS TIME. BILATERAL SOFT WRIST RESTRAINT ON WITH NO IMPAIRED CIRCULATION. NEEDS ATTENDED AND ANTICIPATED, KEPT CLEAN, DRY AND COMFORTABLE. AM CARE RENDERED,ASSISTED REPOSITION EVERY 2 HOURS. GOOD SKIN CARE AT ALL TIMES. FREQUENT RE ORIENTATION. SAFETY MEASURES AT ALL TIMES. ENDORSE POC.
[2019-12-16] MEDS: INSULIN REGULAR, HUMAN 100 UNIT/ML 3 ML VIAL SQ PRN ×3 (06:14→22:34)
[2019-12-16] MEDS: BLOOD SUGAR DIAGNOSTIC 1 EACH STRIP VI SCH ×4 (06:17→21:09)
--- NOTE | 2019-12-16 07:39 | NUR ---
RN NOTES Received patient in bed resting comfortably in moderate high back rest. A/O x2. No signs of distress noted at this time. IV access on Right wrist #22, patent and intact. safety precautions for fall remains engaged, call light in reach, will continue to monitor.
[2019-12-16 08:00] VITALS: BP 157/81
[2019-12-16] MEDS: GABAPENTIN 100 MG CAPSULE PO SCH ×3 (08:11→17:32)
[2019-12-16] MEDS: MAGNESIUM OXIDE 400 MG TABLET PO SCH (08:11)
[2019-12-16] MEDS: MEMANTINE HCL 5 MG TABLET PO SCH ×2 (08:11→17:32)
[2019-12-16] MEDS: LEVOTHYROXINE SODIUM 88 MCG TABLET PO SCH (08:12)
[2019-12-16] MEDS: METOPROLOL TARTRATE 25 MG TABLET PO SCH ×2 (08:12→21:07)
[2019-12-16] MEDS: LOSARTAN POTASSIUM 50 MG TABLET PO SCH (08:12)
[2019-12-16] MEDS: PANTOPRAZOLE 40 MG TABLET.DR PO SCH (08:12)
[2019-12-16] MEDS: ISOSORBIDE MONONITRATE (30MG) 30 MG TAB.SR.24H PO SCH (08:12)
[2019-12-16] MEDS: CARBIDOPA/LEVODOPA 25/100 MG 1 UDTAB PO SCH ×4 (08:12→21:04)
[2019-12-16] MEDS: MUPIROCIN OINT 2% 22 GM TUBE NS SCH ×2 (08:13→21:08)
[2019-12-16] MEDS: CLOTRIMAZOLE 1% 15 GM TUBE TP SCH ×2 (08:14→17:33)
[2019-12-16 11:33] LABS: CREATININE, URINE 32.7 MG/DL (30.0-125.0); URINE TOTAL PROTEIN 29.9 mg/dL (0-11.9)
[2019-12-16 12:25] LABS: APPEARANCE,URINE CLEAR (CLEAR); BILIRUBIN,URINE NEGATIVE (NEGATIVE); BLOOD, URINE NEGATIVE Ery/uL (NEGATIVE); COLOR,URINE YELLOW (YELLOW); KETONES,URINE NEGATIVE (NEGATIVE); LEUKOCYTE ESTERASE ,URINE NEGATIVE (NEGATIVE); NITRITE, URINE NEGATIVE (NEGATIVE); PROTEIN,URINE TRACE mg/dl (NEGATIVE); UGLUCOSE NEGATIVE (NEGATIVE); UROBILINOGEN,URINE 0.2 EU/dL (0.2)
--- NOTE | 2019-12-16 14:45 | NUR ---
MS/RN NOTE Received report from PABLO Garduno. Seen patient resting in bed, A&O x 2, mostly guyanese speaking. No complaints of pain and discomfort at this time. Breathing even and non-labored on RA. No respiratory or cardiac distress noted. IV access noted on R wrist #22 g, patent and intact, and flushing well. R foot dressing remained clean and intact. BKA noted on LLE. Bilateral soft wrist restraints in place, circulation and sensation remained intact. Bed locked to its lowest position, side rails x 2 up, call light in hand. Will continue current medical management.
--- NOTE | 2019-12-16 14:50 | NUR ---
RN NOTES ENDORSE TO PABLO WEISS FOR MAR.
[2019-12-16 15:42] LABS: BACTERIA,URINE None seen /HPF (None Seen); MUCUS,URINE Few /LPF (None Seen); RBC,URINE 0-2 /HPF (0-2); SQUAMOUS EPITHELIAL CELL,UR 0-2 /HPF (None Seen); WBC,URINE 0-2 /HPF (0-3)
[2019-12-16 15:51] LABS: EOSINOPHIL,URINE None Seen
[2019-12-16 16:00] VITALS: BP 111/63
--- NOTE | 2019-12-16 18:54 | NUR ---
MS/RN CLOSING NOTE Patient resting in bed, A&O x 2, mostly croatian speaking. All needs are met and attended to. VSS, afebrile, no SOB noted. No complaints of pain and discomfort at this time. No cardiac distress noted. IV access noted on R wrist #22 g, patent and intact, and flushing well. R foot dressing remained clean and intact. Bilateral soft wrist restraints in place, circulation and sensation remained intact. Fall precautions maintained. Will endorse to cnc machinist 2nd shift nurse.
[2019-12-16 20:00] VITALS: BP 100/69
[2019-12-16] MEDS: MIRTAZAPINE 15 MG TABLET PO SCH (21:04)
[2019-12-16] MEDS: DONEPEZIL 5 MG TABLET PO SCH (21:04)
[2019-12-16] MEDS: ATORVASTATIN 40 MG TABLET PO SCH (21:04)
[2019-12-17] MEDS: *INSULIN REGULAR(HUMULIN R)HUM 100 UNIT/ML VIAL SQ PRN (03:46)
[2019-12-17 06:58] LABS: BASOPHILS % (AUTO) 0.7 % (0.0-2.0); EOSINOPHILS % (AUTO) 9.1 % (0.0-6.0); HEMATOCRIT 31 % (39-51); HEMOGLOBIN 9.7 g/dL (13.5-17.5); LYMPHOCYTES # (AUTO) 2.1 /CMM (0.8-4.8); LYMPHOCYTES % (AUTO) 38.9 % (20.0-44.0); MEAN CORPUSCULAR HGB CONC 32 g/dl (31.0-36.0); MEAN CORPUSCULAR VOLUME 78 fL (80-96); MONOCYTES # (AUTO) 0.5 /CMM (0.1-1.30); MONOCYTES % (AUTO) 8.6 % (2.0-12.0); NEUTROPHILS # (AUTO) 2.3 /CMM (1.8-8.9); NEUTROPHILS % (AUTO) 42.7 % (43.0-81.0); PLATELET COUNT (AUTO) 272 /CMM (150-450); WHITE BLOOD COUNT (AUTO) 5.4 K/uL (4.3-11.0)
[2019-12-17 07:20] LABS: ALBUMIN 2.6 g/dL (3.4-5.0); BILIRUBIN,TOTAL 0.3 mg/dL (0.2-1.0); CALCIUM, SERUM 8.5 mg/dL (8.5-10.1); CREATININE 1.2 mg/dL (0.6-1.3); MAGNESIUM 1.7 mg/dL (1.8-2.4); POTASSIUM 3.6 mmol/L (3.5-5.1); TOTAL PROTEIN, SERUM 7.7 g/dL (6.4-8.2)
--- NOTE | 2019-12-17 07:27 | NUR ---
RN CLOSING NOTES Pt asleep on bed. No new complaints made. Noted asleep within the shift. No episodes of agitation noted. All nursing needs attended, due meds given as ordered. Kept on bed clean, dry and comfortable. Call light within easy reach. On fall and aspiration precautions. Endorsed.
[2019-12-17 08:00] VITALS: BP 115/61
--- NOTE | 2019-12-17 08:00 | NUR ---
m/s nurse orthopedic: initial assessment received pt in bed sounds asleep, easily arousable. no distress noted. vss. afebrile. will continue to monitor.
[2019-12-17] MEDS: BLOOD SUGAR DIAGNOSTIC 1 EACH STRIP VI SCH ×4 (08:36→21:31)
[2019-12-17] MEDS: METOPROLOL TARTRATE 25 MG TABLET PO SCH ×2 (08:37→20:21)
[2019-12-17] MEDS: GABAPENTIN 100 MG CAPSULE PO SCH ×4 (08:40→16:59)
[2019-12-17] MEDS: CARBIDOPA/LEVODOPA 25/100 MG 1 UDTAB PO SCH ×5 (08:41→20:17)
[2019-12-17] MEDS: MAGNESIUM OXIDE 400 MG TABLET PO SCH ×2 (08:41→09:00)
[2019-12-17] MEDS: LEVOTHYROXINE SODIUM 88 MCG TABLET PO SCH ×2 (08:41→09:04)
[2019-12-17] MEDS: MUPIROCIN OINT 2% 22 GM TUBE NS SCH ×2 (08:41→20:17)
[2019-12-17] MEDS: MEMANTINE HCL 5 MG TABLET PO SCH ×3 (08:41→16:59)
[2019-12-17] MEDS: PANTOPRAZOLE 40 MG TABLET.DR PO SCH ×2 (08:41→09:04)
[2019-12-17] MEDS: LOSARTAN POTASSIUM 50 MG TABLET PO SCH ×2 (08:41→09:00)
[2019-12-17] MEDS: ISOSORBIDE MONONITRATE (30MG) 30 MG TAB.SR.24H PO SCH ×2 (08:45→09:00)
[2019-12-17] MEDS: CLOTRIMAZOLE 1% 15 GM TUBE TP SCH ×2 (08:46→17:19)
--- NOTE | 2019-12-17 09:00 | NUR ---
m/s illusionist: notes attempting to feed pt, but pt still sleepy. easily arousable. chemotherapist forensic chemist at bedside. held meds at this time. will continue to monitor.
[2019-12-17] MEDS: Magnesium 1GM/D5W 100ML PREMIX 100 ML IV SCH ×4 (10:26→14:08)
--- NOTE | 2019-12-17 12:00 | NUR ---
m/s seismic observer: notes resting comfortable in bed. no s/s of distress, easily arousable, but remains sleepy. will continue to monitor.
--- NOTE | 2019-12-17 14:00 | NUR ---
M/S PACKAGING MACHINE OPERATOR: NOTES RESTING COMFORTABLE IN BED. NO DISTRESS NOTED.
[2019-12-17 16:00] VITALS: BP 119/60
--- NOTE | 2019-12-17 16:20 | NUR ---
m/jazmine parham: notes id [id number] here and wants me to collect culture to right heel wound. right heel wound culture collected and lab notified to roller picker specimen. Addendum: 12/17/19 at 1623 by KAMRYN BOND LVN tx done as ordered after culture collected.
--- NOTE | 2019-12-17 18:30 | NUR ---
m/s seat cover installer: notes in bed resting comfortable. needs attended. no apparent distress noted. will continue to monitor.
--- NOTE | 2019-12-17 18:32 | NUR ---
m/s thread clipper: notes f/u made to lab to bulk picker specimen, spoke to christiana (laboratory sample carrier).
--- NOTE | 2019-12-17 19:00 | NUR ---
m/s grinder machine setter: notes report given to carie (bari) for continuity of care.
--- NOTE | 2019-12-17 19:32 | NUR ---
MS PABLO OPEN NOTES PATIENT IS LAYING IN BED. A/O X2. ON RA, NO SOB/ ACUTE RESPIRATORY DISTRESS NOTED. IV IN R WRIST #22G IS PATENT AND INTACT. PATIENT STATES HE IS HAPPY BECAUSE HE IS NOT IN PAIN. BED IS IN LOWEST LOCKED POSITION WITH SIDE RAILS UP X3, SEMI FOWLERS. CALL LIGHT IS WITHIN REACH. WILL CONTINUE TO MONITOR.
[2019-12-17 20:00] VITALS: BP 103/61
[2019-12-17] MEDS: DONEPEZIL 5 MG TABLET PO SCH (21:30)
[2019-12-17] MEDS: ATORVASTATIN 40 MG TABLET PO SCH (21:30)
[2019-12-17] MEDS: MIRTAZAPINE 15 MG TABLET PO SCH (21:30)
[2019-12-18] MEDS: BLOOD SUGAR DIAGNOSTIC 1 EACH STRIP VI SCH ×4 (06:47→21:42)
--- NOTE | 2019-12-18 06:51 | NUR ---
MS RN CLOSE NOTES PATIENT IS LAYING IN BED. A/O X2. ON RA, NO SOB/ ACUTE RESPIRATORY DISTRESS NOTED. IV IN R WRIST #22G IS PATENT AND INTACT. ALL ACCUCHECKS DONE. HAS NO COMPLAINTS OF PAIN AT THE MOMENT/ APPEARS COMFORTABLE. BED IS IN LOWEST LOCKED POSITION WITH SIDE RAILS UP X3, SEMI FOWLERS. CALL LIGHT IS WITHIN REACH. WILL ENDORSE TO AM NURSE.
[2019-12-18 08:00] VITALS: BP 156/67
--- NOTE | 2019-12-18 08:00 | NUR ---
received pt. alert and oriented x2,confused,pleasant,vs stable.hep lock in place.appears comfortable.
[2019-12-18] MEDS: MAGNESIUM OXIDE 400 MG TABLET PO SCH (10:41)
[2019-12-18] MEDS: GABAPENTIN 100 MG CAPSULE PO SCH ×3 (10:42→19:13)
[2019-12-18] MEDS: METOPROLOL TARTRATE 25 MG TABLET PO SCH ×2 (10:42→21:14)
[2019-12-18] MEDS: LEVOTHYROXINE SODIUM 88 MCG TABLET PO SCH (10:42)
[2019-12-18] MEDS: CARBIDOPA/LEVODOPA 25/100 MG 1 UDTAB PO SCH ×4 (10:42→21:16)
[2019-12-18] MEDS: MEMANTINE HCL 5 MG TABLET PO SCH ×2 (10:43→19:14)
[2019-12-18] MEDS: PANTOPRAZOLE 40 MG TABLET.DR PO SCH (10:52)
[2019-12-18] MEDS: ISOSORBIDE MONONITRATE (30MG) 30 MG TAB.SR.24H PO SCH (10:52)
[2019-12-18] MEDS: LOSARTAN POTASSIUM 50 MG TABLET PO SCH (10:53)
[2019-12-18] MEDS: *INSULIN REGULAR(HUMULIN R)HUM 100 UNIT/ML VIAL SQ PRN ×2 (12:00→22:39)
[2019-12-18] MEDS: MUPIROCIN OINT 2% 22 GM TUBE NS SCH ×2 (12:10→21:41)
[2019-12-18] MEDS: CLOTRIMAZOLE 1% 15 GM TUBE TP SCH ×2 (12:10→19:19)
[2019-12-18 15:22] LABS: IRON, SERUM 28 ug/dl (50-175); TOTAL IRON BINDING CAPACITY 290 ug/dl (250-450)
[2019-12-18 16:00] VITALS: BP 109/51
[2019-12-18] MEDS: GLUCERNA SHAKE 237 ML CAN PO SCH (17:00)
--- NOTE | 2019-12-18 18:00 | NUR ---
no change in status,family calling often.
--- NOTE | 2019-12-18 19:40 | NUR ---
MS RN OPENING NOTES PATIENT AWAKE IN BED. A/OX2-3. ON RA; NO S/S OF ACUTE RESPIRATORY DISTRESS; BREATHING IS EVEN AND UNLABORED. NO C/O PAIN AT THIS TIME. PATIENT LEGALLY BLIND. LEFT BKA PRESENT AND DRESSING ON RIGHT HEEL DRY AND INTACT. IV PRESENT ON RIGHT WRIST, SIZE 22, INTACT & PATENT, HEP LOCKED. SAFETY MEASURES IN PLACE AND PATIENT'S NEEDS MET. BED LOCKED, SIDE RAILS X3, CALL LIGHT WITHIN REACH. WILL CONTINUE TO MONITOR.
[2019-12-18 20:00] VITALS: BP 108/63
[2019-12-18 20:57] VITALS: BP 108/63
[2019-12-18] MEDS: ATORVASTATIN 40 MG TABLET PO SCH (21:13)
[2019-12-18] MEDS: DONEPEZIL 5 MG TABLET PO SCH (21:14)
[2019-12-18] MEDS: MIRTAZAPINE 15 MG TABLET PO SCH (21:14)
[2019-12-19] MEDS: LEVOTHYROXINE SODIUM 88 MCG TABLET PO SCH (06:40)
[2019-12-19] MEDS: PANTOPRAZOLE 40 MG TABLET.DR PO SCH (06:40)
[2019-12-19] MEDS: INSULIN REGULAR, HUMAN 100 UNIT/ML 3 ML VIAL SQ PRN ×2 (06:44→11:51)
[2019-12-19] MEDS: BLOOD SUGAR DIAGNOSTIC 1 EACH STRIP VI SCH ×3 (06:47→17:45)
--- NOTE | 2019-12-19 07:26 | NUR ---
MS RN CLOSING NOTES PATIENT SLEEPING, EASY TO AWAKEN. REMAINED STABLE DURING SHIFT. A/OX2-3. ON RA; NO S/S OF ACUTE RESPIRATORY DISTRESS; BREATHING IS EVEN AND UNLABORED. NO C/O PAIN AT THIS TIME. PATIENT LEGALLY BLIND. LEFT BKA PRESENT AND DRESSING ON RIGHT HEEL DRY AND INTACT. IV PRESENT ON RIGHT WRIST, SIZE 22, INTACT & PATENT, HEP LOCKED. SAFETY MEASURES IN PLACE AND PATIENT'S NEEDS MET. BED LOCKED, SIDE RAILS X3, CALL LIGHT WITHIN REACH. WILL ENDORSE TO DAY SHIFT RN PLAN OF CARE.
[2019-12-19 08:00] VITALS: BP 167/76
--- NOTE | 2019-12-19 08:00 | NUR ---
RN Opening Note Received patient in bed, AO x 2 confuse, able to responds all stimuli. patient does no c/o pain or distress, respiratory even and unlabored on room air O2sat 99%. Skin is warm to touch, keep clean.dry, intact IV site on right wrist G22, with HL. Kept bed in locked with lowest position for safety. Will continue to monitor.
[2019-12-19 08:39] LABS: BASOPHILS % (AUTO) 0.6 % (0.0-2.0); EOSINOPHILS % (AUTO) 6.4 % (0.0-6.0); HEMATOCRIT 32 % (39-51); HEMOGLOBIN 10.1 g/dL (13.5-17.5); LYMPHOCYTES # (AUTO) 2.9 /CMM (0.8-4.8); LYMPHOCYTES % (AUTO) 39.6 % (20.0-44.0); MEAN CORPUSCULAR HGB CONC 32 g/dl (31.0-36.0); MEAN CORPUSCULAR VOLUME 78 fL (80-96); MONOCYTES # (AUTO) 0.5 /CMM (0.1-1.30); MONOCYTES % (AUTO) 7.4 % (2.0-12.0); NEUTROPHILS # (AUTO) 3.3 /CMM (1.8-8.9); PLATELET COUNT (AUTO) 304 /CMM (150-450); RED BLOOD CELL COUNT(AUTO) 4.07 MIL/uL (4.5-6.0); WHITE BLOOD COUNT (AUTO) 7.2 K/uL (4.3-11.0)
[2019-12-19] MEDS: GLUCERNA SHAKE 237 ML CAN PO SCH ×2 (08:41→17:44)
[2019-12-19] MEDS: LOSARTAN POTASSIUM 50 MG TABLET PO SCH (08:46)
[2019-12-19] MEDS: MUPIROCIN OINT 2% 22 GM TUBE NS SCH (08:46)
[2019-12-19] MEDS: CARBIDOPA/LEVODOPA 25/100 MG 1 UDTAB PO SCH ×3 (08:46→17:45)
[2019-12-19] MEDS: MAGNESIUM OXIDE 400 MG TABLET PO SCH (08:46)
[2019-12-19] MEDS: MEMANTINE HCL 5 MG TABLET PO SCH ×2 (08:46→17:45)
[2019-12-19] MEDS: GABAPENTIN 100 MG CAPSULE PO SCH ×3 (08:46→17:45)
[2019-12-19] MEDS: ISOSORBIDE MONONITRATE (30MG) 30 MG TAB.SR.24H PO SCH (08:47)
[2019-12-19] MEDS: METOPROLOL TARTRATE 25 MG TABLET PO SCH (08:49)
[2019-12-19] MEDS: CLOTRIMAZOLE 1% 15 GM TUBE TP SCH ×2 (08:49→17:45)
[2019-12-19 09:36] LABS: CALCIUM, SERUM 8.6 mg/dL (8.5-10.1); CREATININE 1.1 mg/dL (0.6-1.3); PHOSPHORUS 2.9 mg/dL (2.5-4.9); POTASSIUM 3.9 mmol/L (3.5-5.1)
[2019-12-19] MEDS: HYDROCODONE/APAP 5/325MG TABLET PO PRN (11:36)
[2019-12-19] MEDS ORDERED: NUT.237L45 PO (12:27)
[2019-12-19 16:00] VITALS: BP 127/64
--- NOTE | 2019-12-19 16:53 | NUR ---
Patient discharge to [facility] room 201-A, given report Erica/RN include f/u ID:Dr. Murphy/[phone] in 1 week.
--- NOTE | 2019-12-19 18:43 | NUR ---
RN Closing Note Patient in bed resting comfortably, does no appears pain or distress. Skin is warm to touch, keep clean/dry. Respiratory even and unlabored with on room air, O2sat 99%. Patient waiting ambulance for discharge to SNF, wound picture taken before patient leave. Keep locked bed and lowest bed position for safety. Call light within reach, will endorse shank faker.
[2019-12-19 19:20] VITALS: BP 123/61
--- NOTE | 2019-12-19 19:20 | NUR ---
MS/PROOF READER TO SNF INDUCTOR TESTER BY TRANSPORT PATIENT ALERT X2 , RESPIRATIONS EVEN AND UNLABORED, DENIES PAIN, NO GRIMACE OR GUARDING, VITAL SIGNS CHECKED, ID BAND REMOVED AND IV SITE REMOVED, REPORT GIVEN TO TRANSPORT FOR DISCHARGE TO [facility]. BELONGINGS SENT. DISCHARGE AND PROVIDED REPORT BY AM RN TO RN AT [facility]. BED LOCKED, CALL LIGHTS WITHIN REACH, WILL MONITOR.
--- NOTE | 2019-12-19 19:21 | NUR ---
SKIN BODY ASSESSED PICTURED TAKEN BY JORDI SHAH.
== END 2019-12-19 19:35 | DRG 622 ==
LOC: ER 14:33 → TELE-TD 16:21 → TELE2 18:28 → TELE 12-13 23:20 → MED 12-15 08:27
PROVIDERS: ADMIT Internal Medicine; ATTEND Nurse Practitioner Acute Care
PROC: 0KBV0ZZ Excision of Right Foot Muscle, Open Approach (ICD-10-PCS; principal; 2019-12-15)
DX: E11.621 Type 2 diabetes mellitus with foot ulcer (principal); G93.41 Metabolic encephalopathy; E44.0 Moderate protein-calorie malnutrition; E87.1 Hypo-osmolality and hyponatremia; M86.671 Other chronic osteomyelitis, right ankle and foot; J90 Pleural effusion, not elsewhere classified; N17.0 Acute kidney failure with tubular necrosis; E11.69 Type 2 diabetes mellitus with other specified complication; E11.51 Type 2 diabetes mellitus with diabetic peripheral angiopathy without gangrene; E11.42 Type 2 diabetes mellitus with diabetic polyneuropathy; D63.8 Anemia in other chronic diseases classified elsewhere; F02.80 Dementia in other diseases classified elsewhere, unspecified severity, without behavioral disturbance, psychotic disturbance, mood disturbance, and anxiety; E03.9 Hypothyroidism, unspecified; D50.9 Iron deficiency anemia, unspecified; G31.83 Neurocognitive disorder with Lewy bodies; N18.9 Chronic kidney disease, unspecified; Z86.73 Personal history of transient ischemic attack (TIA), and cerebral infarction without residual deficits; Z79.4 Long term (current) use of insulin; Z79.01 Long term (current) use of anticoagulants; H54.8 Legal blindness, as defined in USA; I95.9 Hypotension, unspecified; E88.09 Other disorders of plasma-protein metabolism, not elsewhere classified; I25.10 Atherosclerotic heart disease of native coronary artery without angina pectoris; E11.40 Type 2 diabetes mellitus with diabetic neuropathy, unspecified; Z86.14 Personal history of Methicillin resistant Staphylococcus aureus infection; E86.1 Hypovolemia; Z68.24 Body mass index [BMI] 24.0-24.9, adult; Z88.0 Allergy status to penicillin; Z89.512 Acquired absence of left leg below knee; L97.519 Non-pressure chronic ulcer of other part of right foot with unspecified severity; E11.22 Type 2 diabetes mellitus with diabetic chronic kidney disease; I12.9 Hypertensive chronic kidney disease with stage 1 through stage 4 chronic kidney disease, or unspecified chronic kidney disease; Z22.322 Carrier or suspected carrier of Methicillin resistant Staphylococcus aureus
CPT/HCPCS: 36415; 71045-TC; 73630-TC; 76770-TC; 80048-TC; 80053-TC; 80076-TC; 81000-TC; 82570-TC; 82962-TC; 83540-TC; 83605-TC; 83735-TC; 84100-TC; 84155-TC; 84300-TC; 84484-TC; 85025-TC; 85652-TC; 85730-TC; 87040-TC; 87070-TC; 87081-TC; 87086-TC; 87186-TC; A6403; G0378; J1815; J3475; J7030; J7040; U0003-CS